=== PATIENT | female | born 1940 | race Caucasian/White ===

== ENCOUNTER 2019-02-25 17:51 | Inpatient (IN) | payer MEDICARE, BC ==
[~2019-02-25] VITALS: Ht 162.6 cm; Wt 77.2 kg
[~2019-02-25 17:51] MED LIST: BENADRYL INJ50 MG/ML IV; BENADRYL25 M1 PO; BENADRYL25 MG IV; CARAFATE1 G PEG; CELEXA20 MG PO; DULCOLAX10 MG/SUPP RC; DUONEB 2.5-0.5 M3 ML INH; E.E.S. 200200 MG/5 M PO; FLEXERIL10 MG PO; GAS-X125 M1 PO; INTRALIPID 20%250 ML IV; K-DUR20 MEQ PO; LEVAQUIN500 MG IV; LEVOFLOXAC500 MG/100 IV; LORTAB LIQUID15 ML PO; LOVENOX30 MG/0.3 SQ; LOVENOX40 MG/0.4 SQ; MAG-OX 400 MG400 MG PO; MARINOL2.5 MG PO; MEGACE400 MG/10 PO; MIDAMOR5 MG PO; MIRALAX17 GM PO; ONDANSETRON4 MG/2 M3 IV; PATIENT'S OWN MED; PERIACTIN4 MG PO; PHAZYME180 MG PO; PHOS-NAK PAC1 PACKET PO; PROTONIX40 MG PO; SALINE FLUSH10 ML IV; SENOKOT-S TABLE1 TAB PO; SENSIPAR30 MG PO; SODIUM CL 0.91000 ML IV; SYNTHROID75 MCG PO; TPN IV; VANCOMYCIN1 GM/2501 IV; XENAZINE12.5 MG PO; ZOFRAN ODT4 MG/UDTAB PO; ZOFRAN4 MG PO; [UNRECOGNIZED DRUG - OTHER] IV
[2019-02-25] MEDS ORDERED: LEVOFLOXACIN500 MG PO (18:03)
[2019-02-25] MEDS ORDERED: REGLAN10 MG PO (18:03)
[2019-02-25 18:44] LABS: BASOPHILS 0.1 % (0-2); EOSINOPHILS 0.8 % (0-7); HEMATOCRIT 28.4 % (36.0-48.0); HEMOGLOBIN 9.4 g/dL (12-16); IMMATURE GRANULOCYTES 1.4 % (0-5); LYMPHOCYTES 20.5 % (15-50); MCH 29.8 pg (26.0-34.0); MCHC 33.1 g/dL (31.0-37.0); MCV 90.2 fL (80.0-100.0); MEAN PLATELET VOLUME 11.9 fL (7.4-10.4); MONOCYTES 5.5 % (2-11); NEUTROPHILS 71.7 % (40-80); PLATELET COUNT 191 10x3/uL (130-400); RBC 3.15 10x6/uL (4.00-5.40); RDW 12.8 % (11.5-14.5); WBC 14.1 10x3/uL (4.8-10.8)
--- NOTE | 2019-02-25 18:56 | NUR ---
EMS IV WITH SIGNS OF INFILTRATION, IV DC"D CATH INTACT, OK PER DR. TORRES TO RESITE IV IN FOOT. 20G IV WITH BLOOD DRAW TO DORSAL SIDE OF RIGHT FOOT.
[2019-02-25 19:25] LABS: LIPASE 125 U/L (73-393); MAGNESIUM - SERUM 1.3 mg/dL (1.8-2.4); PRO BNP 407 pg/mL (0-450); THYROID STIMULATING HORMONE 0.98 uIU/mL (0.36-3.74)
[2019-02-25 19:26] LABS: TROPONIN-I < 0.017 ng/mL (0.000-0.060)
[2019-02-25 19:30] VITALS: BP 109/67
[2019-02-25 19:53] LABS: ALBUMIN 2.5 g/dL (3.4-5.0); BILIRUBIN - TOTAL 0.27 mg/dL (0.2-1.3); CALCIUM 8.1 mg/dL (8.5-10.1); CARBON DIOXIDE 18.5 mmol/L (21.0-32.0); CREATININE - SERUM 2.3 mg/dL (0.6-1.3); POTASSIUM - SERUM 4.5 mmol/L (3.5-5.1); PROTEIN - SERUM 6.9 g/dL (6.4-8.2)
--- NOTE | 2019-02-25 19:54 | NUR ---
PT ASSISTED ONTO BED VANG. URINE SPECIMEN SENT TO LAB.
[2019-02-25 20:15] LABS: APPEARANCE HAZY (CLEAR); BILIRUBIN 3+ (NEGATIVE); COLOR DK YELLOW (YELLOW); GLUCOSE NEGATIVE (NEGATIVE); KETONE SMALL mg/dL (NEGATIVE); NITRITE POSITIVE (NEGATIVE); PROTEIN NEGATIVE (NEGATIVE); SPECIFIC GRAVITY 1.015 (1.005-1.020)
[2019-02-25 20:17] LABS: BACTERIA MODERATE /hpf (NONE SEEN); EPITHELIAL CELLS 0-5 /hpf (0-5); RED CELLS - URINE 0-5 /hpf (0-5)
[2019-02-25 20:19] LABS: YEAST <1+ /hpf (NONE SEEN)
[2019-02-25 22:21] VITALS: BP 112/65; BMI 27.4
--- NOTE | 2019-02-25 22:47 | NUR ---
PT ARRIVED VIA STRETCHER FROM ER AT 2121 HRS. VSS. PT DENIED ANY DISCOMFORT. ADMISSION ASSESSMENT, HISTORY COMPLETED AT THIS TIME. SR PER CM HR 95. IV TO R FOOT SL. PT ALERT AND ORIENTED TO PERSON, PLACE AND TIME. VAL[place]. LYTTON. LUNGS DIMINISHED IN BASES BILAT. LARGE ABD HERNIA NOTED. HEALING INCISION NOTED TO R HIP WITH SMALL SCAB. L ARM WITH LARGE BRUISE. BUTTOCKS SLIGHTLY RED. PALPABLE PERIPHERAL PULSES. PT UNSURE OF MEDS. STATES DAUGHTER WILL BE BACK SOON. PT ALSO STATES SHE IS UNABLE TO BEAR WEIGTH AND IS WC BOUND. S RUP X2, CALL LIGHT WITHIN REACH.
[2019-02-25 23:55] VITALS: BP 112/65
--- NOTE | 2019-02-26 00:53 | NUR ---
PT AWAKE, DENIES ANY DISCOMFORT. DAUGHTER HERE. HOME MEDS REVIEWED.
--- NOTE | 2019-02-26 02:24 | NUR ---
PT INCONTINENT OF URINE. INCONTINENT CARE DONE.
[2019-02-26 03:25] VITALS: BP 102/63
--- NOTE | 2019-02-26 05:09 | NUR ---
PT RESTING WITH EYES CLOSED. RESP EVEN AND REGULAR. SR UP X2, CALL LIGHT WITHIN REACH.
--- NOTE | 2019-02-26 05:58 | NUR ---
VSS THROUGHOUT NIGHT. SR PER CM. PT STATED SHE FELT BETTER. NEEDS MET, WILL CONTINUE TO MONITOR. DAUGHTER AT BEDSIDE.
[2019-02-26 09:00] VITALS: BP 105/63
--- NOTE | 2019-02-26 09:31 | NUR ---
CALLED GI AND SPOKE WITH ELDER, ASKED HIM IF PT IS ON SCHEDULE FOR UPPER GI TODAY WITH DR. DIAZ. ELDER WILL CALL ME BACK.
--- NOTE | 2019-02-26 11:36 | NUR ---
PT TO RADIOLOGY AT THIS TIME.
[2019-02-26 12:34] VITALS: BMI 27.6
--- NOTE | 2019-02-26 12:38 | NUR ---
CLEANED PT FROM INCONT EPISODE, REPOSTIONED PT IN BED, FAMILY AT BEDSIDE. CALL LIGHT IN REACH, NAD NOTED, WILL CONTINUE TO MONITOR.
--- NOTE | 2019-02-26 13:45 | NUR ---
OT NOTE: ATTEMPTED OT EVAL..HOLD PER FAMILY REQUEST. BERTRAM CORBETT, OTR/L
--- NOTE | 2019-02-26 14:05 | NUR ---
1/2 NS AT 75CC/HR STARTED TO RT FOOT IV. PT RESTING COMFORTABLY IN BED, DENIES ANHY NEEDS AT THIS TIME. CALL LIGHT IN REACH, NAD NOTED, WILL CONTINUE TO MONITOR.
--- NOTE | 2019-02-26 14:43 | NUR ---
CLEANED PT FROM INCONT EPISODE AND REPOSITIONED PT BACK ON HER LT SIDE.
--- NOTE | 2019-02-26 19:45 | NUR ---
PT LYING IN BED. CALL LIGHT IN REACH. PT DENIES NEEDS OR PAIN AT THIS TIME. BED IN LOW .SIDE RAILS X2. IV INTACT IN RIGHT FOOT. LUNGS DIMINISHED. BOWEL ACTIVE X4. A/O X4. INCONT OF URINE. TELEMETRY ON. WILL CONTINUE TO MONITOR.
[2019-02-26 20:00] VITALS: BP 111/67
[2019-02-27] VITALS: BP 100/54
--- NOTE | 2019-02-27 03:11 | NUR ---
PT PULLED RIGHT FOOT IV OUT DUE TO BEING LOW IN BED. NEW IV STARTED 20GUAGE IN SAME RIGHT FOOT. NO COMPLICATIONS. WCTM IV STARTED BACK.
[2019-02-27 04:00] VITALS: BP 97/46
--- NOTE | 2019-02-27 04:22 | NUR ---
I have reviewed this patient and I concur with the Shift Assessment completed by the Licensed Practical Nurse today this shift.
[2019-02-27 06:25] LABS: BASOPHILS 0.1 % (0-2); EOSINOPHILS 1.6 % (0-7); HEMATOCRIT 24.3 % (36.0-48.0); HEMOGLOBIN 7.8 g/dL (12-16); IMMATURE GRANULOCYTES 1.3 % (0-5); LYMPHOCYTES 20.8 % (15-50); MCH 29.1 pg (26.0-34.0); MCHC 32.1 g/dL (31.0-37.0); MCV 90.7 fL (80.0-100.0); MONOCYTES 6.6 % (2-11); NEUTROPHILS 69.6 % (40-80); RBC 2.68 10x6/uL (4.00-5.40)
[2019-02-27 06:27] LABS: PLATELET COUNT 136 10x3/uL (130-400); WBC 6.8 10x3/uL (4.8-10.8)
[2019-02-27 06:58] LABS: INR 1.08 (0.85-1.17); PROTIME 13.5 SECONDS (11.6-15.0)
[2019-02-27 07:28] LABS: ALBUMIN 2.9 g/dL (3.4-5.0); ANION GAP 17.2 mmol/L (8-16); BILIRUBIN - TOTAL 0.47 mg/dL (0.2-1.3); CARBON DIOXIDE 17.8 mmol/L (21.0-32.0); MAGNESIUM - SERUM 1.2 mg/dL (1.8-2.4); PRE-ALBUMIN 16.5 mg/dL (18.0-35.7); PROTEIN - SERUM 5.6 g/dL (6.4-8.2)
[2019-02-27 07:47] VITALS: BP 111/60
[2019-02-27 07:54] LABS: CALCIUM 10.6 mg/dL (8.5-10.1); CREATININE - SERUM 2.9 mg/dL (0.6-1.3)
--- NOTE | 2019-02-27 07:56 | NUR ---
LAB CALLED WITH GLUCOSE OF 52. BED SIDE NURSETj FINLEY NOTIFIED.
--- NOTE | 2019-02-27 08:40 | NUR ---
OT NOTE: UNABLE TO EVALUATE THIS AM, BLOOD SUGAR WAS VERY LOW. BERTRAM CORBETT, OTR/L
[2019-02-27 10:14] LABS: FOLATE (FOLIC ACID) - SERUM 12.5 ng/mL (>3.0)
[2019-02-27 12:18] VITALS: BP 109/31
--- NOTE | 2019-02-27 14:20 | NUR ---
I have reviewed this patient and I concur with the Shift Assessment completed by the Licensed Practical Nurse today this shift.
--- NOTE | 2019-02-27 18:44 | NUR ---
PT IS TO BE GETTING ONE UNIT BLOOD. LAB HAS BEEN UNABLE TO STICK PT SUCCESSFULLY FOR TYPE AND XMATCH. WILL ATTEMPT NOW TO DRAW BLOOD AGAIN
[2019-02-27 19:25] VITALS: BP 109/31
[2019-02-27 20:00] VITALS: BP 93/59
--- NOTE | 2019-02-27 22:15 | NUR ---
PT REFUSED IN AND OUT CATH. BLADDER SCAN FOR PT, 0 ML IS RETAINING.
[2019-02-28] VITALS: BP 112/57
--- NOTE | 2019-02-28 00:01 | NUR ---
1 UNITS OF BLOOD STARTED BY VAN AVILES.
--- NOTE | 2019-02-28 02:59 | NUR ---
REST QUIETLY IN BED, CALL LIGHT IN REACH.
[2019-02-28 04:00] VITALS: BP 166/61
[2019-02-28 06:52] LABS: BASOPHILS 0.1 % (0-2); EOSINOPHILS 1.5 % (0-7); IMMATURE GRANULOCYTES 1.9 % (0-5); LYMPHOCYTES 22.8 % (15-50); MCH 29.7 pg (26.0-34.0); MCHC 32.7 g/dL (31.0-37.0); MCV 90.7 fL (80.0-100.0); MEAN PLATELET VOLUME 12.4 fL (7.4-10.4); NEUTROPHILS 64.7 % (40-80); PLATELET COUNT 119 10x3/uL (130-400); RDW 13.4 % (11.5-14.5); WBC 6.8 10x3/uL (4.8-10.8)
[2019-02-28 06:54] LABS: HEMOGLOBIN 10.8 g/dL (12-16); RBC 3.64 10x6/uL (4.00-5.40)
--- NOTE | 2019-02-28 07:30 | NUR ---
A/A/OX4. DENIES ANY PAIN OR DISCOMFORT WITH NO REQUESTS AT THIS TIME. ASSESSMENT COMPLETED. WILL CONTINUE POC.
[2019-02-28 09:21] VITALS: BP 128/60
--- NOTE | 2019-02-28 10:32 | NUR ---
TALKED WITH DAUGHTER CONCERNING ORDER FOR I/O CATH. SHE STATES PT HAS UTI ALMOST ALL OF THE TIME AND HAS BEEN ON SO MANY ABX FOR IT. SHE REQUESTS THAT THE CATH NOT BE DONE AND PT ALSO HAS REFUSED HAVING IT DONE.
[2019-02-28 10:51] LABS: ALBUMIN 3.1 g/dL (3.4-5.0); ANION GAP 14.9 mmol/L (8-16); BILIRUBIN - TOTAL 0.82 mg/dL (0.2-1.3); CALCIUM 11.2 mg/dL (8.5-10.1); CARBON DIOXIDE 17.8 mmol/L (21.0-32.0); CREATININE - SERUM 2.7 mg/dL (0.6-1.3); MAGNESIUM - SERUM 1.2 mg/dL (1.8-2.4); POTASSIUM - SERUM 3.7 mmol/L (3.5-5.1); PROTEIN - SERUM 5.8 g/dL (6.4-8.2)
[2019-02-28 12:07] VITALS: BP 121/61
--- NOTE | 2019-02-28 12:23 | NUR ---
I have reviewed this patient and I concur with the Shift Assessment completed by the Licensed Practical Nurse today this shift.
--- NOTE | 2019-02-28 13:48 | NUR ---
TO RADIOLOGY FOR BARIUM SWALLOW,
--- NOTE | 2019-02-28 14:08 | NUR ---
RETURNED TO ROOM.
[2019-02-28 15:57] VITALS: BP 101/55
--- NOTE | 2019-02-28 18:26 | NUR ---
IV IN LEFT FOREARM INFUSED. NURSE FROM ER WAS ABLE TO GET 22G IN RIGHT THUMB X 1 ATTEMPT. INFUSING WELL AT THIS TIME.
--- NOTE | 2019-02-28 19:01 | NUR ---
OT NOTE: PT COMPLETED POSITIONING AND BED MOB TASK WITH TOTAL A. 09/1216 THANK YOU, ENRIQUETA SALAMANCA
--- NOTE | 2019-02-28 19:35 | NUR ---
RESUMING PT CARE. PT IS ALERT LAYING IN BED. FAMILY AT BEDSIDE. NO C/O VOICED. NO S/S OF DISTRESS NOTED. BED IN LOW POSITION WITH CALL LIGHT IN REACH. SIDE RAILS UP X 2. WILL CONTINUE TO MONITOR PT AND FOLLOW PLAN OF CARE.
[2019-02-28 20:00] VITALS: BP 123/58
[2019-03-01 04:00] VITALS: BP 125/72; BP 177/78
[2019-03-01 05:59] LABS: BASOPHILS 0.1 % (0-2); EOSINOPHILS 1.8 % (0-7); HEMATOCRIT 29.7 % (36.0-48.0); HEMOGLOBIN 9.9 g/dL (12-16); LYMPHOCYTES 21.6 % (15-50); MCH 29.6 pg (26.0-34.0); MCHC 33.3 g/dL (31.0-37.0); MEAN PLATELET VOLUME 11.1 fL (7.4-10.4); MONOCYTES 7.4 % (2-11); NEUTROPHILS 68.1 % (40-80); PLATELET COUNT 113 10x3/uL (130-400); RBC 3.35 10x6/uL (4.00-5.40); RDW 13.5 % (11.5-14.5); WBC 6.8 10x3/uL (4.8-10.8)
[2019-03-01 06:03] LABS: MCV 88.7 fL (80.0-100.0)
[2019-03-01 06:19] LABS: ALBUMIN 2.6 g/dL (3.4-5.0); ANION GAP 10.9 mmol/L (8-16); BILIRUBIN - TOTAL 0.55 mg/dL (0.2-1.3); CALCIUM 11.2 mg/dL (8.5-10.1); CARBON DIOXIDE 19.9 mmol/L (21.0-32.0); CREATININE - SERUM 2.3 mg/dL (0.6-1.3); MAGNESIUM - SERUM 1.1 mg/dL (1.8-2.4); POTASSIUM - SERUM 3.8 mmol/L (3.5-5.1); PROTEIN - SERUM 5.5 g/dL (6.4-8.2)
--- NOTE | 2019-03-01 07:16 | NUR ---
AM ROUNDING DONE WITH PATIENT HAVING NO COMPLAINTS AT PRESENT TIME, ON ROOM AIR. ON HEART MONITOR SHOWING SR, HR 69. RIGHT THUMB PIV SEEN WITH LS INFUSING AT 75 CC/HR. ON EP, K+ IS 3.8. LARGE BRUISED AREA SEEN TO LEFT FA AND TO LEFT HAND. NEEDING UA, IN REPORT PATIENT IS INCONTIENT. BILATERAL SCD'S ON AND IN USE.
[2019-03-01 08:15] VITALS: BP 148/68
--- NOTE | 2019-03-01 10:39 | NUR ---
BALDEMARAY CALLED AND STATED IT WAS GOING TO BE A LITTLE WHILE BEFORE THEY WERE ABLE TO DO HER TEST AND COULD I LET HER KNOW THIS. I SPOKE WITH HER AND SHE VERBALIZED UNDERSTANDING.
--- NOTE | 2019-03-01 11:21 | NUR ---
CATH URINE TO LAB ORDERED.
--- NOTE | 2019-03-01 12:09 | NUR ---
Nutrition follow-up: Diet: Full liquids PO intake ~10% average of meals Labs reivewed Wt: 171# Pt reports a 30# weight loss since October; physician reports same. Pt now assessed with severe malnutrition of chronic illness R/T severe reflux s/p Praveena Fundiplacation AEB ~15% weight loss in 4 months (2018 - 214# and now 171#); < 75% intake of estimated energy needs for > 1 month. RDN will order Ensure wtih meals to increase kcal, protein intake. RDN following.
--- NOTE | 2019-03-01 12:11 | NUR ---
STILL NPO AWAITING RADIOLOGY.
--- NOTE | 2019-03-01 13:01 | NUR ---
TO RADIOLOGY VIA BED.
[2019-03-01 13:09] VITALS: BP 126/44
--- NOTE | 2019-03-01 13:41 | NUR ---
RETURNS FROM RADIOLOGY.
--- NOTE | 2019-03-01 13:52 | NUR ---
WHILE WORKING WITH THERAPY, PATIENT IS CLEANED FROM INCONT. OF URINE AND STOOL.
--- NOTE | 2019-03-01 14:46 | NUR ---
OT NOTE: PT PERFORMED BED MOB WITH MIN ASSIST TOWARDS R SIDE BUT MOD ASSIST TOWARDS L SIDE; SIMPLE GROOMING WITH MIN ASSIST FOR WASHING FACE AND HANDS WITH CLOTH; TOTAL ASSIST WITH PERINEAL CARE, PT WAS INCONT OF B AND B. REPOSITIONED AND CHANGED LINENS. REPOSITIONED UP IN BED WITH MAX ASSIST X 2. BERTRAM CORBETT, OTR/L
[2019-03-01 15:18] VITALS: BP 117/62
--- NOTE | 2019-03-01 16:07 | NUR ---
OT NOTE: PT COMPLETED BED MOB AND POSITIONING WITH MAX A. 215/225 THANK YOU, ENRIQUETA SALAMANCA
--- NOTE | 2019-03-01 19:13 | NUR ---
RESUMING PT CARE. PT IS ALERT LAYING IN BED. FAMILY AT BEDSIDE. NO C/O VOICED. NO S/S OF DISTRESS NOTED. RESPIRATIONS ARE EVEN AND UNLABORED. BED IN LOW POSITION WITH CALL LIGHT IN REACH. WILL CONTINUE TO MONITOR PT AND FOLLOW PLAN OF CARE.
[2019-03-01 20:05] VITALS: BP 120/58
[2019-03-02] VITALS: BP 124/60
--- NOTE | 2019-03-02 03:18 | NUR ---
I have reviewed this patient and I concur with the Shift Assessment completed by the Licensed Practical Nurse today this shift.
[2019-03-02 04:00] VITALS: BP 170/78
[2019-03-02 05:21] LABS: ALBUMIN 2.6 g/dL (3.4-5.0); ANION GAP 13.8 mmol/L (8-16); BILIRUBIN - TOTAL 0.64 mg/dL (0.2-1.3); CALCIUM 11.4 mg/dL (8.5-10.1); CARBON DIOXIDE 18.1 mmol/L (21.0-32.0); CREATININE - SERUM 2.1 mg/dL (0.6-1.3); MAGNESIUM - SERUM 1.2 mg/dL (1.8-2.4); POTASSIUM - SERUM 3.9 mmol/L (3.5-5.1); PROTEIN - SERUM 5.5 g/dL (6.4-8.2)
[2019-03-02 05:24] LABS: HEMATOCRIT 29.9 % (36.0-48.0); MCH 29.9 pg (26.0-34.0); MCHC 33.4 g/dL (31.0-37.0); MCV 89.3 fL (80.0-100.0); MEAN PLATELET VOLUME 12.6 fL (7.4-10.4); PLATELET COUNT 120 10x3/uL (130-400); RBC 3.35 10x6/uL (4.00-5.40); RDW 13.6 % (11.5-14.5); WBC 6.9 10x3/uL (4.8-10.8)
--- NOTE | 2019-03-02 06:18 | NUR ---
PT VOMITED THIS MORNING. COLOR OF VOMIT WAS YELLOW. ZOFRAN 4MG IV GIVEN. WILL CONTINUE TO MONITOR PT AND FOLLOW PLAN OF CARE.
--- NOTE | 2019-03-02 06:22 | NUR ---
PT GLUCOSE WAS 61 PER AM LABS. INSTA-GLU GEL WAS GIVEN. PER NURSE PRACTIONER KALPANA BURKS. PT ONLY HAD A SMALL AMOUNT. PT DID NOT TOLERATE WELL. WILL CONTINUE TO MONITOR PT AND FOLLOW PLAN OF CARE.
--- NOTE | 2019-03-02 07:14 | NUR ---
AM ROUNDING DONE WITH PATIENT HAVING NO COMPLAINTS. WAS SICK LAST SHIFT. RIGHT THUMB SEEN PIV WITH LR INFUSING AT 75 CC/HR. TOTAL CARE PATIENT. IN INCONT. ON HEART MONITOR. UNABLE TO MOVE LEFT LEG. OBESE ABDOMEN. ON EP, K+ IS 3.9. BRUISING SEEN TO LEFT AHD RIGHT ARM AND LEFT HAND. BILATERAL SCD'S ARE ON AND IN USE.
[2019-03-02 07:56] VITALS: BP 137/54
--- NOTE | 2019-03-02 08:05 | NUR ---
PATIENT TO REFUSE HER BREAKFAST TRAY THIS AM.
[2019-03-02 09:03] LABS: EOSINOPHILS 1 % (0-7); HYPOCHROMASIA 1+; LYMPHOCYTES 30 % (15-50); MONOCYTES 8 % (2-11); NEUTROPHILS 60 % (40-80); PLATELET ESTIMATE NORMAL; ROULEAUX OCC
--- NOTE | 2019-03-02 11:10 | NUR ---
NOON MEDS NOT GIVEN PATIENT IS HAVING SOME YELLOW EMESIS. ZOFRAN GIVEN.
[2019-03-02 12:20] VITALS: BP 125/70
--- NOTE | 2019-03-02 13:06 | MORECARE ---
CASE MANAGEMENT DISCHARGE SUMMARY PATIENT: SAMANTA HUERTA UNIT: [id number] ADM DATE: 02/25/19 AGE: 78 : 41 SEX: F ROOM/BED: D.2109 AUTHOR: LORENE REAVES PHYSICIAN: REFERRING PHYSICIAN: KARISSA PETERSON MD DATE OF SERVICE: 03/02/19 Discharge Plan Patient Name: SAMANTA HUERTA Facility: [facility]:[place] : 1940 Planned Disposition: Home with Home Health Anticipated Discharge Date: Discharge Date: Expected LOS: Initial Reviewer: [email or web address] Initial Review Date: 03/02/2019 Generated: 03/02/19 2:05 pm Coverage Notice Reviewer: [id number] - Leonid Sandy Notice Issued Date-Time: 03/02/2019 9:40 Notice Type: Patient Choice Letter Notice Delivered To: Patient Relationship to Patient: Clay Molder Name: Delivery Method: HAND - Hand Delivered Radha Days: Prior Verbal Notification: Recipient Understood Notice: Yes Recipient Signature: Yes Med Rec Note Co-signed by Attending: Coverage Notice Comment: [facility] Patient Name: SAMANTA HUERTA Page 44921 at 1306 All edits/amendments must be made on the electronic document DICTATION DATE: 03/02/19 1305 BLACK ASH BURNER OPERATOR: DEISY 03/02/19 1305 RPT#: [id number] DC DATE: STATUS: ADM IN [facility] [address] [place] [address] END OF REPORT
--- NOTE | 2019-03-02 13:27 | MORECARE ---
CASE MANAGEMENT DISCHARGE SUMMARY PATIENT: SAMANTA HUERTA UNIT: [id number] ADM DATE: 02/25/19 AGE: 78 : 41 SEX: F ROOM/BED: D.2108 AUTHOR: LORENE REAVES PHYSICIAN: REFERRING PHYSICIAN: KARISSA PETERSON MD DATE OF SERVICE: 03/02/19 Discharge Plan Patient Name: SAMANTA HUERTA Facility: [facility]:[place] : 1940 Planned Disposition: Home with Home Health Anticipated Discharge Date: Discharge Date: Expected LOS: Initial Reviewer: [email or web address] Initial Review Date: 03/02/2019 Generated: 03/02/19 2:27 pm Coverage Notice Reviewer: [id number] - Leonid Sandy Notice Issued Date-Time: 03/02/2019 9:40 Notice Type: Patient Choice Letter Notice Delivered To: Patient Relationship to Patient: Dominatrix Name: Delivery Method: HAND - Hand Delivered Radha Days: Prior Verbal Notification: Recipient Understood Notice: Yes Recipient Signature: Yes Med Rec Note Co-signed by Attending: Coverage Notice Comment: [facility] Last DP export: 03/02/19 12:05 pm Patient Name: SAMANTA HUERTA Page 80196 at 1327 All edits/amendments must be made on the electronic document DICTATION DATE: 03/02/19 1326 GOLF MANAGER: DEISY 03/02/19 1326 RPT#: [id number] [place] DATE: STATUS: ADM IN [facility] [address] [place] [address] END OF REPORT
--- NOTE | 2019-03-02 13:33 | MORECARE ---
CASE MANAGEMENT DISCHARGE SUMMARY PATIENT: SAMANTA HUERTA UNIT: [id number] ADM DATE: 02/25/19 AGE: 78 : 41 SEX: F ROOM/BED: D.2108 AUTHOR: JELLY,DOC PHYSICIAN: REFERRING PHYSICIAN: KARISSA PETERSON MD DATE OF SERVICE: 03/02/19 Discharge Plan Patient Name: SAMANTA HUERTA Facility: [facility]:[place] : 1940 Planned Disposition: Home with Home Health Anticipated Discharge Date: Discharge Date: Expected LOS: Initial Reviewer: [email or web address] Initial Review Date: 03/02/2019 Generated: 03/02/19 2:33 pm DCPIA - Discharge Planning Initial Assessment Updated by MARIELENA: Leonid Sandy on 03/02/19 1:28 pm * Is the patient Alert and Oriented? Yes * How many steps to enter\exit or inside your home? RAMP * PCP DR. MENDOZA IN [place] * Pharmacy [facility] IN [place] * Preadmission Environment Home with Family * ADLs Partial Dependent * Partial ADLs (Assistance needed) Ambulation Bathing Dressing Medication Management Toileting Transfers * Equipment Hospital Bed Arcadio Lift Wheelchair * Other Equipment NO MEDICAL EQUIPMENT PROVIDER PREFERENCE * List name and contact numbers for known caregivers / representatives who currently or will assist patient after discharge: MARYBESSY OLGUIN, R, * Verbal permission to speak to the caregivers and representatives has been obtained from the patient. Yes * Community resources currently utilized Home Health * Please name any agencies selected above. [facility]ER[facility] * Additional services required to return to the preadmission environment? No * Can the patient safely return to the preadmission environment? Yes * Has this patient been hospitalized within the prior 30 days at any hospital? Yes Coverage Notice Reviewer: [id number] - Leonid Sandy Notice Issued Date-Time: 03/02/2019 9:40 Notice Type: Patient Choice Letter Notice Delivered To: Patient Relationship to Patient: Biology Specialist Name: Delivery Method: HAND - Hand Delivered Radha Days: Prior Verbal Notification: Recipient Understood Notice: Yes Recipient Signature: Yes Med Rec Note Co-signed by Attending: Coverage Notice Comment: [facility] Last DP export: 03/02/19 12:27 pm Patient Name: SAMANTA HUERTA Page [id number] at 1333 All edits/amendments must be made on the electronic document DICTATION DATE: 03/02/191332 TOOL AND DIE MAKER LEVEL FIVE: DEISY 03/02/191332 RPT#: [id number] DC DATE: STATUS: ADM IN [facility] [address] [place] [address] END OF REPORT
--- NOTE | 2019-03-02 13:41 | MORECARE ---
CASE MANAGEMENT DISCHARGE SUMMARY PATIENT: SAMANTA HUERTA UNIT: [id number] ADM DATE: 02/25/19 AGE: 78 : 41 SEX: F ROOM/BED: D.9271 AUTHOR: JELLY,DOC PHYSICIAN: REFERRING PHYSICIAN: KARISSA PETERSON MD DATE OF SERVICE: 03/02/19 Discharge Plan Patient Name: SAMANTA HUERTA Facility: [facility]:[place] : 1940 Planned Disposition: Home with Home Health Anticipated Discharge Date: Discharge Date: Expected LOS: Initial Reviewer: [email or web address] Initial Review Date: 03/02/2019 Generated: 03/02/19 2:41 pm Comments DCP- Discharge Planning Updated by [email or web address]: Leonid Sandy on 03/02/19 12:[address] Patient Name: SAMANTA HUERTA Admission Status: ER Accout number: [id number] Admission Date: 02-25-2019 : 1940 Admission Diagnosis:NAUSEA WITH VOMITING, UNSPECIFIED Attending: KARISSA PETERSON Current LOS: 5 Anticipated DC Date: Planned Disposition: Home with Home Health Primary Insurance: MEDICARE A & B PLANNED EXTERNAL PROVIDER: [facility] Discharge Planning Comments: CM MET WITH PT IN ROOM TO DISCUSS DISCHARGE PLANNING AND NEEDS. PT REPORTS LIVING AT HOME DEPENDENTLY ON [place], SPOUSE AND DAUGHTER WHO LIVES NEXT DOOR WHO ASSISTS WITH MEDICATIONS, BATH AND TRANSFERS. PT HAS ARCADIO LIFT, WHEELCHAIR AND HOSPITAL BED AT HOME. PT HAS NO MEDICAL EQUIPMENT PROVIDER PREFERENCE. PT HAS HOME HEALTH FOR NURSING AND PHYSICAL THERAPY WITH [facility]. CM DISCUSSED AVAILABILITY OF HOME HEALTH, REHAB SERVICES AND MEDICAL EQUIPMENT. PT DENIES NEED OF REHAB OR ADDITIONAL MEDICAL EQUIPMENT. PT REPORTS NEEDING AMBULANCE FOR DISCHARGE HOME. HOME HEALTH PROVIDER LISTING GIVEN, PT SIGNED CONSENT FOR [facility]. CM CALLED [facility], , VERIFIED PT IS ACTIVE AND ON HOLD FOR HOME HEALTH SERVICES. CM FAXED UPDATE TO [facility] AT [phone]. FOR DISCHARGE HOME AND RESUPTION OF HOME HEALTH SERVICES, NOTIFY [facility] AT [phone], FAX DISCHARGE INFORMATION TO [facility] AT [phone]. Machine Tool Builder: Leonid Sandy DCPIA - Discharge Planning Initial Assessment Updated by [id number]: Leonid Sandy on 03/02/19 1:28 pm * Is the patient Alert and Oriented? Yes * How many steps to enter\exit or inside your home? RAMP * PCP DR. MENDOZA IN [place] * Pharmacy [facility] IN [place] * Preadmission Environment Home with Family * ADLs Partial Dependent * Partial ADLs (Assistance needed) Ambulation Bathing Dressing Medication Management Toileting Transfers * Equipment Hospital Bed Arcadio Lift Wheelchair * Other Equipment NO MEDICAL EQUIPMENT PROVIDER PREFERENCE * List name and contact numbers for known caregivers / representatives who currently or will assist patient after discharge: MARY OLGUIN, DTR, * Verbal permission to speak to the caregivers and representatives has been obtained from the patient. Yes * Community resources currently utilized Home Health * Please name any agencies selected above. [facility] * Additional services required to return to the preadmission environment? No * Can the patient safely return to the preadmission environment? Yes * Has this patient been hospitalized within the prior 30 days at any hospital? Yes External Providers External Provider: [facility] Next Contact Date: 03/02/2019 Service Request Date: Service Type: Resolution: Reviewer: Comments: Coverage Notice Reviewer: [id number] - Leonid Sandy Notice Issued Date-Time: 03/02/2019 9:40 Notice Type: Patient Choice Letter Notice Delivered To: Patient Relationship to Patient: Framing Mechanic Name: Delivery Method: HAND - Hand Delivered Radha Days: Prior Verbal Notification: Recipient Understood Notice: Yes Recipient Signature: Yes Med Rec Note Co-signed by Attending: Coverage Notice Comment: [facility] Last DP export: 03/02/19 12:33 pm Patient Name: SAMANTA HUERTA Page 50901 at 1341 All edits/amendments must be made on the electronic document DICTATION DATE: 03/02/19 1340 NEWS PRODUCTION ASSISTANT: DEISY 03/02/19 1340 RPT#: [id number] DC DATE: STATUS: ADM IN [facility] [address] [place] [address] END OF REPORT
--- NOTE | 2019-03-02 14:58 | NUR ---
COMPLAINTS OF NAUSEA AGAIN, NO EMESIS AT THIS TIME. ZOFRAN GIVEN FOR COMFORT OF STOMACH.
[2019-03-02 15:56] VITALS: BP 166/74
--- NOTE | 2019-03-02 16:43 | NUR ---
DARCI KELLEY RN TO GIVE PATIENT MEDS AND PATIENT VOMITS GREEN BILE, APPROX 4 OZ. CALL INTO KALPANA MICHELLE APN. AWAITING CALL BACK. DAUGHTER AT BEDSIDE.
--- NOTE | 2019-03-02 16:47 | NUR ---
RECEIVED CALL BACK FROM KALPANA MICHELLE APN. TO CALL GI. SAWANT INTO DR GALVAN, AWAITING CALL BACK.
--- NOTE | 2019-03-02 17:00 | NUR ---
DR GALVAN TO CALL BACK WITH NEW ORDERS. PATIENT IS MADE NPO.
--- NOTE | 2019-03-02 17:48 | NUR ---
PT SITTING UP IN BED. RESP EVEN AND NONLABORED. NO ACUTE DISTRESS NOTED. PT DAUGHTER REQUESTED ANOTHER IV FOR THE REGLAN TO BE GIVEN THROUGH. DIOGO ATTEMPTED TO PLACE IV WITH NO SUCCESS. PT STILL HAS PATENT IV IN R THUMB. IV IN USE FOR LR IV FLUID. MEDICATION GIVEN AT THIS TIME. CL IN REACH. PT HAS NOT VOMITED SINCE EPISODE EARLIER THIS SHIFT. WILL CONT TO MONITOR.
[2019-03-02 20:00] VITALS: BP 153/87
[2019-03-03] VITALS: BP 130/86
[2019-03-03 03:00] VITALS: BP 148/79
--- NOTE | 2019-03-03 03:35 | NUR ---
I have reviewed this patient and I concur with the Shift Assessment completed by the Licensed Practical Nurse today this shift.
--- NOTE | 2019-03-03 04:38 | NUR ---
PT LAYING IN BED RESTING COMFORTABLY WITH EYES CLOSED. NO S/S OF DISTRESS NOTED. RESPIRATIONS ARE EVEN AND UNLABORED. BED IN LOW POSITION WITH CALL LIGHT IN REACH. WILL CONTINUE TO MONITOR PT AND FOLLOW PLAN OF CARE.
--- NOTE | 2019-03-03 07:00 | NUR ---
RECEVIED BEDSIDE SHIFT REPORT. ASSUMED CARE OF PATIENT. CALL LIGHT WITHIN REACH. PATIENT RESTING WITH EYES CLOSED. RESP EVEN AND UNLABORED. NO DISTRESS.
[2019-03-03 08:44] VITALS: BP 136/70
--- NOTE | 2019-03-03 08:53 | NUR ---
PATIENT IS NPO WITH NAUSEA THROUGHOUT THE NIGHT. NO MEDICATIONS ADMINISTERED.
--- NOTE | 2019-03-03 09:12 | NUR ---
MEDICATED FOR NAUSEA AT THIS TIME. CALL LIGHT WITHIN REACH. PATIENT ASKING FOR WATER BUT VOMITING. EXPLAINED THAT SHE IS NPO. PATIENT VERBALIZED HER UNDERSTANDING.
--- NOTE | 2019-03-03 10:53 | NUR ---
PATIENTS DAUGHTER MARY CALLED TO CHECK ON PATIENT AND REQUESTING TO SPEAK TO WHEN SHE IS AVAILABLE. WILL FORWARD THIS MESSAGE TO WHEN SHE COMES TO THE UNIT FOR ROUNDS. INFORMED PATIENTS DAUGHTER THAT IS BUSY WITH PROCEDURES THIS AM.
--- NOTE | 2019-03-03 13:08 | NUR ---
NG TUBE PLACED TO LEFT NARE AT THIS TIME. UPON INSERTION OF NGTUBE, EMERALD GREEN SECRETIONS DRAINED FROM END OF TUBE. TUBE SECECURED WITH TAPE AND ON INTERMITTENT SUCTION AT THIS TIME. 200 ML OF EMEARLD GREEN SECRETIONS TO DRAINAGE CANISTER AT THIS TIME. PATIENT TOLERATED PLACEMENT OF TUBE WELL. STAT CXR ORDERED FOR PLACEMENT. AWAITING CXR NOW. CALL LIGHT WITHIN REACH.
--- NOTE | 2019-03-03 13:30 | NUR ---
PATIENT HAS POOR IV ACCESS. OBTAINED ORDER FOR MIDLINE PLACEMENT FROM . CALLED ER, LEXIE WORKS LEIGH. ROOSEVELT STATED SHE WOULD LET HER KNOW OF THE ORDER WHEN SHE GETS HERE LEIGH.
[2019-03-03 13:31] VITALS: BP 125/73
--- NOTE | 2019-03-03 13:51 | NUR ---
PATIENTS DAUGHTER IS AT BEDSIDE AND IS REFUSING PATIENT TO BE STUCK FOR LABS AT THIS TIME. PATIENTS DAUGHTER STATES NOT UNTIL A LINE IS PLACED. ORDER IS FOR MIDLINE. MIDLINES ARE NOT USED FOR BLOOD WITHDRAWL. WILL OBTAIN ORDER FOR PICC.
--- NOTE | 2019-03-03 14:05 | NUR ---
SPOKE WITH MACHINE SNELLER DHIRAJ. PATIENT HAS HAD AN ORDER SINCE 02/27/19 TO HAVE A MIDLINE PLACED AND THIS INDEPENDENT CONTRACTOR PLACED ANOTHER ORDER TODAY. MACHINE SNELLER STATES THOSE HAVE TO BE PUT IN [place]. THIS INDEPENDENT CONTRACTOR STATES THAT LEXIE IS WORKING ER TONIGHT AND IS CERTIFIED AND MACHINE SNELLER STATES SHE PROBABLY WILL NOT PLACE IT BECAUSE SHE IS CHARGE OF ER TONIGHT. MACHINE SNELLER STATES THAT MD WILL HAVE TO ORDER A CENTRAL LINE.
--- NOTE | 2019-03-03 14:30 | NUR ---
PATIENTS GRANDDAUGHTER AT THE DESK. WITH PERMISSION FROM THE PATIENT, DISCUSSED PATIENT WITH THE GRANDDAUGHTER. REVIEWED NOTES. DISCUSSED PLAN OF CARE FOR PATIENT.
--- NOTE | 2019-03-03 14:50 | NUR ---
ORDER FOR CENTRAL LINE RECIEVED DUE PREVIOUS UNSUCCESSFUL ATTEMPTS TO PLACE A MIDLINE DOCUMENTED IN CHART.
--- NOTE | 2019-03-03 14:55 | NUR ---
MADE AWARE OF THE NEED FOR CENTRAL LINE PLACEMENT.
--- NOTE | 2019-03-03 15:00 | NUR ---
CONSENTS SIGNED AND ON THE CHART FOR CENTRAL LINE PLACEMENT.
--- NOTE | 2019-03-03 15:30 | NUR ---
HERE FOR CENTRAL LINE PLACEMENT AT BEDSIDE. ALL EQUIPMENT READY MD ARRIVED. PATIENTS ONE DAUGHTER ALLOWED TO STAY IN ROOM PER PATIENT REQUEST PER MD.
[2019-03-03 15:34] VITALS: Ht 162.6 cm; Wt 77.2 kg
--- NOTE | 2019-03-03 16:08 | NUR ---
INSERTION OF CENTRAL LINE TO LEFT SUBCLAVIAN COMPLETE. ORDER PLACED FOR STAT CXR TO VERIFY PLACMENT OF CENTRAL LINE. PATIENT TOLERATED PROCEDURE WELL. NO DISTRESS. CENTRAL LINE DRESSING DATE. SWAB CAPS PATENT TO LUMENS.
[2019-03-03 16:47] LABS: BASOPHILS 0.2 % (0-2); EOSINOPHILS 0.8 % (0-7); HEMATOCRIT 28.6 % (36.0-48.0); HEMOGLOBIN 9.6 g/dL (12-16); IMMATURE GRANULOCYTES 0.4 % (0-5); LYMPHOCYTES 12.9 % (15-50); MCH 29.8 pg (26.0-34.0); MCHC 33.6 g/dL (31.0-37.0); MCV 88.8 fL (80.0-100.0); MONOCYTES 7.6 % (2-11); NEUTROPHILS 78.1 % (40-80); PLATELET COUNT 111 10x3/uL (130-400); RBC 3.22 10x6/uL (4.00-5.40); RDW 13.6 % (11.5-14.5)
[2019-03-03 16:51] LABS: WBC 10.4 10x3/uL (4.8-10.8)
[2019-03-03 17:01] LABS: ALBUMIN 2.6 g/dL (3.4-5.0); ANION GAP 15.8 mmol/L (8-16); BILIRUBIN - TOTAL 0.46 mg/dL (0.2-1.3); CALCIUM 11.4 mg/dL (8.5-10.1); CARBON DIOXIDE 18.8 mmol/L (21.0-32.0); CREATININE - SERUM 2.1 mg/dL (0.6-1.3); MAGNESIUM - SERUM 1.1 mg/dL (1.8-2.4); POTASSIUM - SERUM 3.6 mmol/L (3.5-5.1)
--- NOTE | 2019-03-03 17:23 | NUR ---
PATIENT TOLERATING CLINIMIX, LR, AND ZOFRAN WELL. DR. OWEN ON UNIT AND PER REQUEST, REVIEWED IV FLUIDS THAT PATIENT IS RECEIVING AND AND NO NEW ORDERS RECEIVED. PATIENTS DAUGHTER REMAINS AT BEDSIDE. CALL LIGHT WITHIN REACH.
[2019-03-03 17:28] VITALS: BP 128/65
--- NOTE | 2019-03-03 17:50 | NUR ---
22 GAUGE IV REMOVED FROM RIGHT THUMB PATIENT NOW HAS A CENTRAL LINE. CATHETER TIP INTACT. TOLERATED IV REMOVAL WELL. NO BLEEDING FROM SITE. 2X2 GAUZE APPLIED AND SECURED WITH TAPE.
--- NOTE | 2019-03-03 19:30 | NUR ---
EVENING ROUNDS MADE. DAUGHTER AT BEDSIDE. PT SLEEPING. NGT NOTED, LIS. L SUBCLAVIAN WITH ZOFRAN @ 4.8, LR @ 75, CLINAMIX @ 30, PATENT, NO REDNESS OR EDEMA NOTED. DEPENDENT EDEMA NOTED TO ALL EXT. SCD'S ON. ABD DISTENDED. FALL PRECAUTIONS IN PLACE. BED LOWERED AND LOCKED. CL IN REACH. WILL CTM.
[2019-03-03 19:35] VITALS: BP 129/68
--- NOTE | 2019-03-03 20:55 | NUR ---
INCONTINENT CARE PROVIDED TO PT. SUPPOSITORY GIVEN. PT ASSISTED UP IN BED. NGT TO MARIAH HERR DRAINAGE NOTED. DENIES PAIN. DIFFICULTY NOTED DURING SPEECH. FALL PRECAUTIONS IN PLACE. WILL CTM.
--- NOTE | 2019-03-03 23:02 | NUR ---
PT C/O PAIN IN THROAT. CHLORASEPTIC SPRAY GIVEN X 1 DOSE. PT STATES INSTANT RELIEF. NO FURTHER CONERNS AT THIS TIME. PT COVERED WITH BLANKETS. NGT TO LIS. IV TO L SUBCLAVIAN, DRSG C/D/I, NO REDNESS OR EDEMA NOTED, PATENT. BREATHING EVEN AND UNLABORED. SCD'S ON. FALL PRECAUTIONS IN PLACE. WILL CTM.
[2019-03-04] VITALS: BP 137/69
[2019-03-04 04:00] VITALS: BP 122/70
[2019-03-04 05:10] LABS: BASOPHILS 0.2 % (0-2); EOSINOPHILS 2.4 % (0-7); HEMATOCRIT 26.5 % (36.0-48.0); HEMOGLOBIN 8.8 g/dL (12-16); IMMATURE GRANULOCYTES 0.3 % (0-5); LYMPHOCYTES 18.5 % (15-50); MCH 29.7 pg (26.0-34.0); MCHC 33.2 g/dL (31.0-37.0); MCV 89.5 fL (80.0-100.0); MEAN PLATELET VOLUME 11.2 fL (7.4-10.4); MONOCYTES 8.9 % (2-11); NEUTROPHILS 69.7 % (40-80); PLATELET COUNT 103 10x3/uL (130-400); RBC 2.96 10x6/uL (4.00-5.40); RDW 13.9 % (11.5-14.5)
[2019-03-04 05:13] LABS: WBC 6.3 10x3/uL (4.8-10.8)
[2019-03-04 05:21] LABS: ALBUMIN 2.4 g/dL (3.4-5.0); BILIRUBIN - TOTAL 0.43 mg/dL (0.2-1.3); CALCIUM 11.5 mg/dL (8.5-10.1); CARBON DIOXIDE 23.2 mmol/L (21.0-32.0); CREATININE - SERUM 1.9 mg/dL (0.6-1.3); POTASSIUM - SERUM 3.2 mmol/L (3.5-5.1); PROTEIN - SERUM 4.9 g/dL (6.4-8.2)
--- NOTE | 2019-03-04 06:04 | NUR ---
PT GIVEN A BATH. INCONTINENT CARE PROVIDED. WILL CTM.
--- NOTE | 2019-03-04 07:00 | NUR ---
RECEVIED REPORT. ASSUMED CARE OF PATIENT. PATIENT WITH EYES CLOSED, EASILY AROUSED. RESP EVEN AND UNLABORED. IV FLUIDS INFUSING ORDERED, CONTINUES TO LOW INTERMITTENT SUCTION. NEW CANISTER PLACED AT 0630 PER NOC SHIFT NURSE. NO DISTRESS.
--- NOTE | 2019-03-04 07:44 | NUR ---
PATIENT RETURNED FROM CTA. RECONNECTED TO SUCTION AND FLUIDS. NO DISTRESS. RESTING WELL.
[2019-03-04 09:25] VITALS: BP 127/71
--- NOTE | 2019-03-04 11:52 | NUR ---
INCONTINENT CARES PROVIDED. TURNED AND REPOSITIONED. NO DISTRESS. CALL LIGHT WITIN REACH.
--- NOTE | 2019-03-04 12:59 | NUR ---
CALLED PHARMACY TO REQUEST ANOTHER BAG OF ZOFRAN FOR PATIENT.
[2019-03-04 14:03] VITALS: BP 137/67
--- NOTE | 2019-03-04 16:54 | NUR ---
RESTING PEACEFULLY. FAMILY AT BEDSIDE. TOLERATING IV FLUIDS/MEDS WELL. NO DISTRESS.
[2019-03-04 20:00] VITALS: BP 132/73
--- NOTE | 2019-03-04 20:20 | NUR ---
INITIAL ROUNDS COMPLETED AT 1915HRS. PT INCONTINENT OF URINE. PT CLEANED BY STAFF AND DAUGHTER. REPOSITIONED IN BED RO COMFORT. ASSESSMENT COMPLETED A 2019 HRS. SRPER CM HR 75. PT ALERT AND ORIENTEDTO PERSON,PLACEANDTIME. [place]. TREMORS NOTED TO UPPER EXTREMITIES AND HEAD. SPEECH WITH TREMORS. LUNGS DIMINISHED IN BASES BILAT. LARGE VENTRAL HERNIANOTED. ABD WITH HYPOACTIVE BS NOTED. NGT TO L NARES WITH LIS. GRREN EXUDATE NOTED. 3+ PEDAL EDEMAL. PALPABLE PERIPHERAL PULSES. BRUISING NOTED TO L ARM. SCAB TO R HIP. LTISC WITH ALIYAH DRIP AT 4.7CC/HR TO MEDIAL PORT, NS AT 75CC/HR TO DISTAL POST AND CLINIMIX AT 30CC/HR TO PROXIMAL PORT. SCD'S IN USE. REMOVED AND SKIN INSPECTED. NO BREAKDOWN NOTED. SR UP X2, CALL LIGHT WITHIN REACH.
--- NOTE | 2019-03-04 21:33 | NUR ---
PM MEDS ADMINISTERED. PT CLEAN AND DRY. SR UP X2, CALL LIGHT WITHIN REACH.
--- NOTE | 2019-03-04 23:06 | NUR ---
PT PULLED OUT NGT AT 2205 HRS. PT REFUSED FOR REINSERTION. EXPLAINED RATIONALE FOR NGT BUT PT CONTINUES TO REFUSE. STATES SHE IS NOT NAUSEATED AND WILL PULL OUT AGAIN IF PLACED BACK IN. STATED SHE WILL SPEAK TO MD IN AM. PT INCONTINENT OF URINE. INCONTINENT CARE DONE. SR UP X2, CALL LIGHT WITHIN REACH.
[2019-03-05] VITALS: BP 124/62
--- NOTE | 2019-03-05 00:42 | NUR ---
PT AWAKE; DENIES ANY DISCOMFORT OR NAUSEA AT THIS TIME. CONTINUES TO REFUSE NGT. SR UP X2, CALL LIGHT WITHIN REACH.
--- NOTE | 2019-03-05 02:24 | NUR ---
PT AWAKE; DENIES ANY DISCOMFORT OR NAUSEA. SR UP X2, CALL LIGHT WITHIN REACH.
[2019-03-05 04:00] VITALS: BP 156/72
--- NOTE | 2019-03-05 04:24 | NUR ---
VSS. PT DENIES ANY NAUSEA. INCONTINENT OF URINE AND BOWEL. INCONTINENT CARE DONE. BED LINENS CHANGED. REPOSITONED IN BED FOR COMFOR. SR UP X2, CALL LIGHT WITHIN REACH.
[2019-03-05 05:41] LABS: HEMATOCRIT 25.8 % (36.0-48.0); HEMOGLOBIN 8.6 g/dL (12-16); MCH 29.6 pg (26.0-34.0); MCHC 33.3 g/dL (31.0-37.0); MCV 88.7 fL (80.0-100.0); MEAN PLATELET VOLUME 11.9 fL (7.4-10.4); PLATELET COUNT 96 10x3/uL (130-400); RBC 2.91 10x6/uL (4.00-5.40); RDW 13.7 % (11.5-14.5); WBC 6.4 10x3/uL (4.8-10.8)
[2019-03-05 06:20] LABS: ALBUMIN 2.5 g/dL (3.4-5.0); BILIRUBIN - TOTAL 0.68 mg/dL (0.2-1.3); CREATININE - SERUM 2.1 mg/dL (0.6-1.3)
[2019-03-05 06:33] LABS: ANION GAP 12.8 mmol/L (8-16)
[2019-03-05 06:34] LABS: POTASSIUM - SERUM 2.8 mmol/L (3.5-5.1)
--- NOTE | 2019-03-05 06:40 | NUR ---
PT INCONTINENT OF URINE AND A LARGE SOFT BM. INCONTINENT CARE DONE. AM K+ 2.8. KCL 10MEQ IV X6 TO BE ADMINISTERED. NEEDS MET; WILL CONTINUE TO MONITOR.
--- NOTE | 2019-03-05 07:40 | NUR ---
REPORT RECEIVED. WILL CONTINUE WITH POC. PT CURRENTLY LYING SUPINE. CALL LIGHT W/I REACH. PT IS AAO AND HAS FINE TREMOR. PT IS BEDFAST. RR EVEN AND UNLABORED ON RA. ZOFRAN INFUSING @4.7, LR INFUSING @75 AND CLINIMAX INFUSING @30 VIA L.SUBCLAVIAN CVL. PT DENIES ANY NEEDS AT THIS TIME. NO S/S OF DISTRESS NOTED. WILL CTM.
[2019-03-05 08:30] LABS: LYMPHOCYTES 18 % (15-50); MONOCYTES 14 % (2-11); NEUTROPHILS 68 % (40-80); PLATELET ESTIMATE DECREASED
[2019-03-05 08:55] VITALS: BP 160/76
--- NOTE | 2019-03-05 09:35 | NUR ---
RECEIVED TELEPHONE ORDERS FROM TO PLACE NG TUBE AND SET TO LOW INTER. SUCTION. WILL PLACE NG TUBE. WILL CTM.
--- NOTE | 2019-03-05 10:27 | NUR ---
PT REFUSED NG TUBE. NOTIFIED . WILL CTM.
[2019-03-05 12:36] VITALS: BP 130/73
--- NOTE | 2019-03-05 14:30 | NUR ---
I have reviewed this patient and I concur with the Shift Assessment completed by the Licensed Practical Nurse today this shift.
[2019-03-05 16:43] VITALS: BP 126/69
--- NOTE | 2019-03-05 19:20 | NUR ---
ATIVAN 0.5 MG GIVEN IV FOR S/S AGITATION. DAUGHTER AT BED SIDE.
[2019-03-05 20:00] VITALS: BP 151/83
[2019-03-06] VITALS: BP 136/74
--- NOTE | 2019-03-06 00:11 | NUR ---
STATE AUDITOR AT BED SIDE, BATH AND LINEN CHANGE COMPLETE.
--- NOTE | 2019-03-06 02:25 | NUR ---
I have reviewed this patient and I concur with the Shift Assessment completed by the Licensed Practical Nurse today this shift.
--- NOTE | 2019-03-06 03:30 | NUR ---
RESTING WITH EYES CLOSED, RESPERATIONS NON LABORED. BED LOW, CL IN REACH.
[2019-03-06 04:20] VITALS: BP 129/67
[2019-03-06 04:58] LABS: BASOPHILS 0.2 % (0-2); EOSINOPHILS 2.2 % (0-7); HEMATOCRIT 23.4 % (36.0-48.0); HEMOGLOBIN 7.7 g/dL (12-16); IMMATURE GRANULOCYTES 0.2 % (0-5); LYMPHOCYTES 19.4 % (15-50); MCH 29.6 pg (26.0-34.0); MCHC 32.9 g/dL (31.0-37.0); MEAN PLATELET VOLUME 11.5 fL (7.4-10.4); MONOCYTES 7.3 % (2-11); NEUTROPHILS 70.7 % (40-80); RDW 14.2 % (11.5-14.5)
[2019-03-06 05:01] LABS: PLATELET COUNT 76 10x3/uL (130-400); WBC 4.6 10x3/uL (4.8-10.8)
[2019-03-06 05:44] LABS: ALBUMIN 2.3 g/dL (3.4-5.0); ANION GAP 11.3 mmol/L (8-16); BILIRUBIN - TOTAL 0.37 mg/dL (0.2-1.3); CARBON DIOXIDE 21.6 mmol/L (21.0-32.0); CREATININE - SERUM 2.2 mg/dL (0.6-1.3); POTASSIUM - SERUM 3.9 mmol/L (3.5-5.1); PROTEIN - SERUM 4.6 g/dL (6.4-8.2)
--- NOTE | 2019-03-06 07:30 | NUR ---
AM ROUNDS- PT RESTING COMFORTABLY IN BED, WITH EYES CLOSED, EASILY AROUSES TO VOICE. PT DENIES ANY NEEDS AT THIS TIME. A/O X4, RESP EVEN AND NONLABORED ON RA. SPEECH A LITTLE GARBLE. LT CVL INFUSIGN ZOFRAN AT 4.7CC/HR, AND LR AT 75CC/HR. EDEMA NOTED TO BILAT LEGS. SCDS ON BILAT. APPLIED RICH MOISTERIZER TO PT'S LIPS, CALL LIGHT IN REACH, BEDSIDE RAILS X2, NAD NOTED, WILL CONTINUE PLAN OF CARE.
[2019-03-06 09:16] VITALS: BP 126/64
--- NOTE | 2019-03-06 11:38 | NUR ---
PT RESTING COMFORTABLY IN BED, DENIES ANY NEEDS AT THIS TIME. CALL LIGHT IN REACH, FAMILY ASING WHEN DR. FLAHERTY WILL BE BY TO SEE PT. INFORMED FAMILY THAT I DO NOT HAVE AT TIME, BUT WILL CALL AND TRY TO FIND OUT. WILL CONTINUE TO MONITOR.
--- NOTE | 2019-03-06 12:17 | NUR ---
Nutrition follow-up: Pt NPO at this time; possible J-tube placement soon NGT out and pt refusing to have it replaced ProcalAmine PPN infusing @ 30 ml/hr LR @ 75 ml/hr Labs reviewed Pt with edema to bilateral legs +BM Wt: 180# Recommend starting Osmolite 1.0 guerda @ 30 ml/hr with gradual increase to goal rate of 75 ml/hr with 25 ml H2O flush Q hour. RDN following.
--- NOTE | 2019-03-06 12:37 | NUR ---
NOTIFIED FAMILY AT BEDSIDE THAT DR. FLAHERTY IS IN SURGERY RIGHT NOW, BUT ALYSSA PULIDO WILL CALL ME BACK TO LET ME KNOW WHAT THE PLANS ARE FOR TODAY REGARDING PEG TUBE PLACEMENT.
[2019-03-06 12:38] VITALS: BP 140/75
--- NOTE | 2019-03-06 13:00 | NUR ---
CALLED PHARMACY AND SPOKE WITH DEYVI, INFOMRED HIM THAT I NEED ZOFRAN FOR PT.
--- NOTE | 2019-03-06 15:36 | NUR ---
UNIT OF PRBC STARTED INFUSING. PRE- VITALS FOLLOWED TEMP 98.1, HR 69, BP 113/51. O2 100% RA. PT DENIES ANY NEEDS AT THIS TIME. CALL LIGHT IN REACH, FAMILY AT BEDSIDE, NAD NOTED, WILL STAY WITH PT FOR THE FIRST 15MIN.
--- NOTE | 2019-03-06 16:39 | NUR ---
NOTIFIED PT AND FAMILY THAT PT'S PROCEDURE HAS BEEN MOVED TO TOMORROW AROUND NOON.
[2019-03-06 17:01] VITALS: BP 113/51
[2019-03-06 20:00] VITALS: BP 170/93
--- NOTE | 2019-03-06 21:12 | NUR ---
HS PO MEDS HELD DUE TO PT BEING NPO. SUPPOSITORY GIVEN ORDERED.
--- NOTE | 2019-03-06 23:49 | NUR ---
COMMERCIAL ARTIST LETTERING AT BED SIDE, PT INCONTINENT OF B&B.
[2019-03-07] VITALS: BP 145/79
[2019-03-07 04:00] VITALS: BP 142/86
--- NOTE | 2019-03-07 04:07 | NUR ---
PT VOMITED, MEDICAL BILLING CLERK AT BED SIDE TO CLEAN PT. CVL DRSG CHANGED DUE TO BEING SOILED.
--- NOTE | 2019-03-07 04:46 | NUR ---
I have reviewed this patient and I concur with the Shift Assessment completed by the Licensed Practical Nurse today this shift.
[2019-03-07 04:59] LABS: BASOPHILS 0.3 % (0-2); EOSINOPHILS 1.4 % (0-7); IMMATURE GRANULOCYTES 0.2 % (0-5); LYMPHOCYTES 17.8 % (15-50); MCH 29.4 pg (26.0-34.0); MCHC 33.3 g/dL (31.0-37.0); MCV 88.2 fL (80.0-100.0); MEAN PLATELET VOLUME 11.8 fL (7.4-10.4); MONOCYTES 6.9 % (2-11); NEUTROPHILS 73.4 % (40-80); PLATELET COUNT 84 10x3/uL (130-400); RDW 14.2 % (11.5-14.5)
[2019-03-07 05:27] LABS: ALBUMIN 2.5 g/dL (3.4-5.0); BILIRUBIN - TOTAL 0.81 mg/dL (0.2-1.3); CARBON DIOXIDE 20.6 mmol/L (21.0-32.0); CREATININE - SERUM 2.4 mg/dL (0.6-1.3); POTASSIUM - SERUM 3.6 mmol/L (3.5-5.1)
[2019-03-07 05:38] LABS: CALCIUM 12.1 mg/dL (8.5-10.1)
[2019-03-07 05:45] LABS: HEMATOCRIT 28.5 % (36.0-48.0); HEMOGLOBIN 9.5 g/dL (12-16); RBC 3.23 10x6/uL (4.00-5.40); WBC 6.2 10x3/uL (4.8-10.8)
[2019-03-07 07:56] VITALS: BP 144/87
[2019-03-07 08:42] LABS: PLATELET ESTIMATE DECREASED
--- NOTE | 2019-03-07 11:18 | NUR ---
PT TRANSFERED TO OR.
--- NOTE | 2019-03-07 13:14 | NUR ---
RECEIVED CALL FROM [facility] NURSE.
[2019-03-07 13:29] VITALS: BP 139/77
--- NOTE | 2019-03-07 13:35 | NUR ---
RECEIVED PT BACK TO ROOM 210, VIA BED, PT SLEEPY BUT EASILY AROUSES TO VOICE. PEG TUBE NOTED TO LT SIDE OF ABD. VITAL SIGNS STABLE, PLACED PT ON FREQUENT VITAL SIGNS. PT DENIES ANY NEEDS AT THIS TIME. CALL LIGHT IN REACH, NAD NOTED, WILL CONTINUE TO MONITOR.
--- NOTE | 2019-03-07 19:36 | NUR ---
ASSESSMENT COMPLETE. PT ALERT AND WITH GARBLED SPEECH. RESPERATIONS NON LABORED ON O2 AT 2 LITERS VIA NC. LEFT SUBCLAVIAN CVL WITH ZOFRAN AT 4.7, LR AT 20 AND CLINIMIX AT 50 CC/HR. DRSG TO CVL C.D.I. PEG TUBE DRAINING TO GRAVITY. GREEN BILE LOOKING FLUID NOTED IN BAG. NO NEEDS VOICED AT THIS TIME, BED LOW, CL IN REACH.
[2019-03-07 20:00] VITALS: BP 167/86
[2019-03-08] VITALS: BP 138/76
--- NOTE | 2019-03-08 03:02 | NUR ---
I have reviewed this patient and I concur with the Shift Assessment completed by the Licensed Practical Nurse today this shift.
[2019-03-08 04:00] VITALS: BP 126/87
--- NOTE | 2019-03-08 04:11 | NUR ---
RESTING WITH EYES CLOSED, RESPERATIONS EVEN, NO S/S DISTRESS NOTED.
[2019-03-08 04:51] LABS: BASOPHILS 0.1 % (0-2); EOSINOPHILS 1.2 % (0-7); HEMATOCRIT 27.5 % (36.0-48.0); HEMOGLOBIN 9.2 g/dL (12-16); IMMATURE GRANULOCYTES 0.1 % (0-5); LYMPHOCYTES 15.1 % (15-50); MCH 29.7 pg (26.0-34.0); MCHC 33.5 g/dL (31.0-37.0); MCV 88.7 fL (80.0-100.0); MEAN PLATELET VOLUME 12.4 fL (7.4-10.4); MONOCYTES 5.5 % (2-11); PLATELET COUNT 71 10x3/uL (130-400); RDW 14.8 % (11.5-14.5); WBC 7.2 10x3/uL (4.8-10.8)
[2019-03-08 04:57] LABS: ALBUMIN 2.4 g/dL (3.4-5.0); ANION GAP 11.3 mmol/L (8-16); BILIRUBIN - TOTAL 0.74 mg/dL (0.2-1.3); CARBON DIOXIDE 22.3 mmol/L (21.0-32.0); CREATININE - SERUM 2.6 mg/dL (0.6-1.3); POTASSIUM - SERUM 3.6 mmol/L (3.5-5.1); PROTEIN - SERUM 4.9 g/dL (6.4-8.2)
[2019-03-08 04:59] LABS: CALCIUM 12.1 mg/dL (8.5-10.1)
--- NOTE | 2019-03-08 07:15 | NUR ---
REPORT RECIEVED AND MORNING ROUNDING COMPLETE. PT LAYING IN BED EYES CLOSED BREATHING SHALLOW AND EVEN. PT HAS NC @ 2L. IV RUNNING. PT HAS NO S/SX OF DISTRESS. CALL LIGHT WITHIN REACH AND BED IN LOWEST POSITION.
[2019-03-08 07:46] VITALS: BP 150/65
--- NOTE | 2019-03-08 08:44 | NUR ---
Nutrition consult for PEG tube feeding: Pt s/p PEG tube placement 03/07/19 Received order to start TF today @ noon today. RDN will order Osmolite 1.0 guerda @ 25 ml/hr with gradual increase to goal rate of 75 ml/hr with 100 ml H2O flush Q [address] RDN following.
[2019-03-08 11:39] VITALS: BP 131/66
--- NOTE | 2019-03-08 12:14 | NUR ---
CALLED DIETARY FOR PT'S OSMOLITE SO WE CAN START HER FEEDINGS. DIETARY STATED THEY WILL BRING IT TO THE FLOOR.
--- NOTE | 2019-03-08 13:05 | NUR ---
CALLED CENTRAL SUPPLY. IN NEED OF A KANGROO PUMP TO START PT'S FEEDIGNS
--- NOTE | 2019-03-08 13:34 | NUR ---
STARTED PT'S FEEDINGS. USING KANGAROO PUMP.
[2019-03-08 15:37] VITALS: BP 143/65
[2019-03-08 20:00] VITALS: BP 132/92
--- NOTE | 2019-03-08 21:45 | NUR ---
CALLED PHARMACY ABOUT MEDICATION CONTAINING SALMON WHEN PT HAS SEAFOOD ALLERGY, SHELLFISH DERIVED. PHARMACY STATED STATED IT SHOULD BE FINE SO LONG PT DOES NOT HAVE SPECIFIC ALLERGY TO SALMON. VERIFIED WITH PT, WHEN ASKED ABOUT SEAFOOD ALLERGY AND ASK IF SHE HAS BEEN ABLE TO HAVE SALMON, PT SAID, "NO SALMON."
--- NOTE | 2019-03-09 03:31 | NUR ---
I have reviewed this patient and I concur with the Shift Assessment completed by the Licensed Practical Nurse today this shift.
[2019-03-09 04:00] VITALS: BP 141/91
--- NOTE | 2019-03-09 07:30 | NUR ---
AM ROUNDS COMPLETED. INTRODUCED MYSELF TO PT PRIMARY RN FOR TODAYS SHIFT. PT IS RESTING QUIETLY IN BED WITH EYES CLOSED. RR NONLABORED ON RA. NO S/S OF DISTRESS OR ANY CURRENT NEEDS AT THIS TIME. CL IN REACH, BED IN LOWEST, SIDE RAILS X2 AND BUILT IN BED ALARM ON. WILL CPOC.
[2019-03-09 07:56] VITALS: BP 136/78
--- NOTE | 2019-03-09 09:00 | NUR ---
SHIFT ASSESSMENT COMPLETED. PT IS A&O SITTING UP IN BED ON HER L.SIDE. TURNED PT ONTO HER R.SIDE TO RELIEVE PRESSURE. REPOSITIONED BILAT FEET IN BED AND ELEVATED ON PILLOWS. PT HAS BILAT SWOLLEN FEET. NO CURRENT NEEDS AT THIS TIME. WILL CTM.
--- NOTE | 2019-03-09 10:26 | MORECARE ---
CASE MANAGEMENT DISCHARGE SUMMARY PATIENT: SAMANTA HUERTA UNIT: [id number] ADM DATE: 02/25/19 AGE: 78 : 41 SEX: F ROOM/BED: D.0579 AUTHOR: JELLY,DOC PHYSICIAN: REFERRING PHYSICIAN: KARISSA PETERSON MD DATE OF SERVICE: 03/09/19 Discharge Plan Patient Name: SAMANTA HUERTA Facility: [facility]:[place] : 1940 Planned Disposition: Home with Home Health Anticipated Discharge Date: Discharge Date: Expected LOS: Initial Reviewer: [id number] Initial Review Date: 03/02/2019 Generated: 03/09/19 11:26 am DCP- Discharge Planning Updated by [id number]: Leonid Sandy on 03/02/19 12:[address] Patient Name: SAMANTA HUERTA Admission Status: ER Accout number: [id number] Admission Date: 02-25-2019 : 1940 Admission Diagnosis:NAUSEA WITH VOMITING, UNSPECIFIED Attending: KARISSA PETERSON Current LOS: 5 Anticipated DC Date: Planned Disposition: Home with Home Health Primary Insurance: MEDICARE A & B PLANNED EXTERNAL PROVIDER: [facility] Discharge Planning Comments: CM MET WITH PT IN ROOM TO DISCUSS DISCHARGE PLANNING AND NEEDS. PT REPORTS LIVING AT HOME DEPENDENTLY ON [place], SPOUSE AND DAUGHTER WHO LIVES NEXT DOOR WHO ASSISTS WITH MEDICATIONS, BATH AND TRANSFERS. PT HAS ARCADIO LIFT, WHEELCHAIR AND HOSPITAL BED AT HOME. PT HAS NO MEDICAL EQUIPMENT PROVIDER PREFERENCE. PT HAS HOME HEALTH FOR NURSING AND PHYSICAL THERAPY WITH [facility]. CM DISCUSSED AVAILABILITY OF HOME HEALTH, REHAB SERVICES AND MEDICAL EQUIPMENT. PT DENIES NEED OF REHAB OR ADDITIONAL MEDICAL EQUIPMENT. PT REPORTS NEEDING AMBULANCE FOR DISCHARGE HOME. HOME HEALTH PROVIDER LISTING GIVEN, PT SIGNED CONSENT FOR [facility]. CM CALLED [facility], , VERIFIED PT IS ACTIVE AND ON HOLD FOR HOME HEALTH SERVICES. CM FAXED UPDATE TO [facility] AT [phone]. FOR DISCHARGE HOME AND RESUPTION OF HOME HEALTH SERVICES, NOTIFY [facility] AT [phone], FAX DISCHARGE INFORMATION TO [facility] AT [phone]. Turkish Rubber: Leonid Sandy DCPIA - Discharge Planning Initial Assessment Updated by [id number]: Leonid Sandy on 03/02/19 1:28 pm * Is the patient Alert and Oriented? Yes * How many steps to enter\exit or inside your home? RAMP * PCP DR. MENDOZA IN [place] * [facility] IN [place] * Preadmission Environment Home with Family * ADLs Partial Dependent * Partial ADLs (Assistance needed) Ambulation Bathing Dressing Medication Management Toileting Transfers * Equipment Hospital Bed Arcadio Lift Wheelchair * Other Equipment NO MEDICAL EQUIPMENT PROVIDER PREFERENCE * List name and contact numbers for known caregivers / representatives who currently or will assist patient after discharge: MARY OLGUIN, DTR, * Verbal permission to speak to the caregivers and representatives has been obtained from the patient. Yes * Community resources currently utilized Home Health * Please name any agencies selected above. [facility], [facility]URSING AND [facility]YSICAL THERAPY * Additional services required to return to the preadmission environment? No * Can the patient safely return to the preadmission environment? Yes * Has this patient been hospitalized within the prior 30 days at any hospital? Yes External Providers External Provider: [facility] Next Contact Date: 03/09/2019 Service Request Date: Service Type: Resolution: Reviewer: Comments: Coverage Notice Reviewer: [id number] - Leonid Sandy Notice Issued Date-Time: 03/02/2019 9:40 Notice Type: Patient Choice Letter Notice Delivered To: Patient Relationship to Patient: Brand Protection Manager Name: Delivery Method: HAND - Hand Delivered Radha Days: Prior Verbal Notification: Recipient Understood Notice: Yes Recipient Signature: Yes Med Rec Note Co-signed by Attending: Coverage Notice Comment: [facility] Last DP export: 03/02/19 12:41 pm Patient Name: SAMANTA HUERTA Page [id number] at 1026 All edits/amendments must be made on the electronic document DICTATION DATE: 03/09/19 1026 WEATHERIZATION AND HOUSING INSPECTOR: DEISY 03/09/19 1026 RPT#: [id number] DC DATE: STATUS: ADM IN [facility] [address] [place] [address] END OF REPORT
[2019-03-09] MEDS ORDERED: SENSIPAR90 MG PO (11:02)
--- NOTE | 2019-03-09 11:13 | MORECARE ---
CASE MANAGEMENT DISCHARGE SUMMARY PATIENT: SAMANTA HUERTA UNIT: [id number] ADM DATE: 02/25/19 AGE: 78 : 41 SEX: F ROOM/BED: D.8862 AUTHOR: JELLY,DOC PHYSICIAN: REFERRING PHYSICIAN: KARISSA PETERSON MD DATE OF SERVICE: 03/09/19 Discharge Plan Patient Name: SAMANTA HUERTA Facility: [facility]:[place] : 1940 Planned Disposition: Home with Home Health Anticipated Discharge Date: Discharge Date: Expected LOS: Initial Reviewer: [id number] Initial Review Date: 03/02/2019 Generated: 03/09/19 12:12 pm Comments DCP- Discharge Planning Updated by [id number]: Leonid Sandy on 03/09/19 10:[address] Patient Name: SAMANTA HUERTA Encounter No: [id number] : 1940 Primary Insurance: MEDICARE A & B Anticipated DC Date: Planned Disposition: Home with Home Health External Planned Provider: [facility] DCP follow-up note: CM RECEIVED DISCHARGE PLANNING ORDER. CM REVIEWED CHART, PT NOW ON TUBE FEEDING. CM MET WITH PT IN ROOM TO DISCUSS DISCHARGE PLANNING AND NEEDS. PT REPORTS CONTINUED PLAN TO RETURN HOME AT DISCHARGE, DECLINES NURSING FACILITY PLACEMENT FOR SENIOR CARE CARE OR REHAB SERVICES. PT WANTS RESUPTION OF HOME HEALTH WITH [facility]. CM DISCUSSED NEED FOR TUBE FEEDINGS AT HOME, PROVIDED PT WITH INFUSION SERVICE PROVIDERS. PT HAS NO PREFERENCE ON PROVIDER. IMPORTANT MESSAGE FROM MEDICARE PROVIDED AND EXPLAINED. PT WAS ABLE TO SIGN FIRST NAME ONLY. PT REPORTS INABILITY TO SIGN CONSENT FOR INFUSION SERVICES. CM COMPLETED WITH VERBAL CONSENT OF PT. PT VERIFIED HOME ADDRESS ON FACE SHEET AND INFORMED CM THAT IT IS OK TO DISCUSS DISCHARGE PLANNING AND HER CARE WITH HER MADISONULGHTER, MARY OLGUIN. CM CALLED MARY OLGUIN, , LEFT MESSAGE. CM RECEIVED RETURN CALL FROM MARY WHO REPORTS PLAN FOR PT TO RETURN HOME WITH HOME HEALTH AND CONTINUED FAMILY ASSISTANCE. SHE WOULD LIKE TO USE [facility] IF AVAILABLE. MARY REPORTS PREFERENCE ON [facility] FEEDS IF POSSIBLE. CM CALLED [facility], , SPOKE TO SIGIFREDO ALVAREZ AND PROVIDED REFERRAL INFORMATION, INFORMED THAT HOME HEALTH IS [facility]. CM FAXED REFERRAL TO [facility] AT [phone]. CM CALLED [facility], , NOTIFIED [place] OF DISCHARGE PLANNING ORDER [facility] NEW TUBE FEED AND [facility] PROVIDER. NOTIFY SIGIFREDO ALVAREZ OF [place], , WITH ANY CHANGES TO TUBE FEEDINGS TO COMPLETE ARRANGEMENTS FOR DISCHARGE. FOR DISCHARGE HOME AND RESUPTION OF HOME HEALTH SERVICES, NOTIFY [facility] AT [phone], FAX DISCHARGE INFORMATION TO [facility] AT [phone]. EHSAN MayesEMENT DCP- Discharge Planning Updated by [id number]: Leonid Sandy on 03/02/19 12:[address] Patient Name: SAMANTA HUERTA Admission Status: ER Accout number: [id number] Admission Date: 02-25-2019 : 1940 Admission Diagnosis:NAUSEA WITH VOMITING, UNSPECIFIED Attending: KARISSA PETERSON Current LOS: 5 Anticipated DC Date: Planned Disposition: Home with Home Health Primary Insurance: MEDICARE A & B PLANNED EXTERNAL PROVIDER: [facility] Discharge Planning Comments: CM MET WITH PT IN ROOM TO DISCUSS DISCHARGE PLANNING AND NEEDS. PT REPORTS LIVING AT HOME DEPENDENTLY ON [place], SPOUSE AND DAUGHTER WHO LIVES NEXT DOOR WHO ASSISTS WITH MEDICATIONS, BATH AND TRANSFERS. PT HAS ARCADIO LIFT, WHEELCHAIR AND HOSPITAL BED AT HOME. PT HAS NO MEDICAL EQUIPMENT PROVIDER PREFERENCE. PT HAS HOME HEALTH FOR NURSING AND PHYSICAL THERAPY WITH [facility]. CM DISCUSSED AVAILABILITY OF HOME HEALTH, REHAB SERVICES AND MEDICAL EQUIPMENT. PT DENIES NEED OF REHAB OR ADDITIONAL MEDICAL EQUIPMENT. PT REPORTS NEEDING AMBULANCE FOR DISCHARGE HOME. HOME HEALTH PROVIDER LISTING GIVEN, PT SIGNED CONSENT FOR [facility]. CM CALLED [facility], , VERIFIED PT IS ACTIVE AND ON HOLD FOR HOME HEALTH SERVICES. CM FAXED UPDATE TO [facility] AT [phone]. FOR DISCHARGE HOME AND RESUPTION OF HOME HEALTH SERVICES, NOTIFY [facility] AT [phone], FAX DISCHARGE INFORMATION TO [facility] AT [phone]. Prop And Scenery Maker: Leonid Sandy DCPIA - Discharge Planning Initial Assessment Updated by [id number]: Leonid Sandy on 03/02/19 1:28 pm * Is the patient Alert and Oriented? Yes * How many steps to enter\exit or inside your home? RAMP * PCP DR. MENDOZA IN [place] * [facility]acy [facility] IN [place] * Preadmission Environment Home with Family * ADLs Partial Dependent * Partial ADLs (Assistance needed) Ambulation Bathing Dressing Medication Management Toileting Transfers * Equipment Hospital Bed Arcadio Lift Wheelchair * Other Equipment NO MEDICAL EQUIPMENT PROVIDER PREFERENCE * List name and contact numbers for known caregivers / representatives who currently or will assist patient after discharge: MARY OLGUIN, DTR, * Verbal permission to speak to the caregivers and representatives has been obtained from the patient. Yes * Community resources currently utilized Home Health * Please name any agencies selected above. [facility]ER[facility] * Additional services required to return to the preadmission environment? No * Can the patient safely return to the preadmission environment? Yes * Has this patient been hospitalized within the prior 30 days at any hospital? Yes Coverage Notice Reviewer: [id number] Don Sandy Notice Issued Date-Time: 03/02/2019 9:40 Notice Type: Patient Choice Letter Notice Delivered To: Patient Relationship to Patient: Catalytic Converter Operator Name: Delivery Method: HAND - Hand Delivered Radha Days: Prior Verbal Notification: Recipient Understood Notice: Yes Recipient Signature: Yes Med Rec Note Co-signed by Attending: Coverage Notice Comment: [facility] Reviewer: [id number] Don Sandy Notice Issued Date-Time: 03/09/2019 10:00 Notice Type: IM Discharge Notice Notice Delivered To: Patient Relationship to Patient: Catalytic Converter Operator Name: Delivery Method: HAND - Hand Delivered Radha Days: Prior Verbal Notification: Recipient Understood Notice: Yes Recipient Signature: Yes Med Rec Note Co-signed by Attending: Coverage Notice Comment: Last DP export: 03/09/19 9:26 a Patient Name: SAMANTA HUERTA Page 52713 at 1113 All edits/amendments must be made on the electronic document DICTATION DATE: 03/09/191111 EMERGING TECHNOLOGIES DIRECTOR: DEISY 03/09/191111 RPT#: [id number] DC DATE: STATUS: ADM IN [facility] [address] [place] [address] END OF REPORT
[2019-03-09 11:17] LABS: BASOPHILS 0.1 % (0-2); EOSINOPHILS 2.5 % (0-7); HEMATOCRIT 28.9 % (36.0-48.0); HEMOGLOBIN 9.5 g/dL (12-16); IMMATURE GRANULOCYTES 0.3 % (0-5); LYMPHOCYTES 14.3 % (15-50); MCH 29.6 pg (26.0-34.0); MCHC 32.9 g/dL (31.0-37.0); MEAN PLATELET VOLUME 11.8 fL (7.4-10.4); MONOCYTES 5.8 % (2-11); PLATELET COUNT 62 10x3/uL (130-400); RBC 3.21 10x6/uL (4.00-5.40); RDW 14.7 % (11.5-14.5); WBC 7.7 10x3/uL (4.8-10.8)
[2019-03-09 11:30] LABS: PLATELET ESTIMATE DECREASED
[2019-03-09 11:32] LABS: ANION GAP 12.2 mmol/L (8-16); CARBON DIOXIDE 23.1 mmol/L (21.0-32.0); CREATININE - SERUM 3.1 mg/dL (0.6-1.3); POTASSIUM - SERUM 3.3 mmol/L (3.5-5.1)
[2019-03-09 11:35] LABS: CALCIUM 12.2 mg/dL (8.5-10.1)
[2019-03-09 11:37] VITALS: BP 139/65
--- NOTE | 2019-03-09 12:00 | NUR ---
CHECKED RESIDUAL AND NO RETURN. INCREASED TUBE FEEDING TO 65ML/HR ORDERED TO INCREASE BY 10CC Q6H IF RESIDUAL >100. FAMILY AT BEDSIDE. NO CURRENT NEEDS. WILL CTM.
--- NOTE | 2019-03-09 13:42 | NUR ---
Nutrition Follow Up: Pt was asleep at the time of RD visit. No family present. Interview deferred at this time. Pt currently on TF of Osmolite 1.0 @ 55 ml/hr. BM: 03/09/19 Wt loss noted Meds and labs reviewed Rec continue advancing TF 10 ml every 6-8 hours as tolerated to goal rate of 75 ml/hr. H2O flushes [address] following.
--- NOTE | 2019-03-09 14:51 | NUR ---
PT INCONTINENT OF BOWEL MOVEMENT SEMI FORMED BROWN. COMPLETE LINEN CHANGE AND BED BATH GIVEN BY BRAYDON CUADRA AT BEDSIDE. PT VOICED THANKS AND DENIES ANY NAUSEA OR DISCOMFORT TODAY. NO FAMILY PRESENT AT THIS TIME. CL IN REACH, BED IN LOWEST, SIDE RAILS X2. WILL CTM.
[2019-03-09 15:56] VITALS: BP 146/68
--- NOTE | 2019-03-09 18:03 | NUR ---
PT RESTING QUIETLY IN BED WITH FAMILY AT BEDSIDE. THEY ARE INQUIRING ABOUT DISCHARGE. NO CURRENT ORDERS HOWEVER WE ARE WORKING ON PLANNING. PT NOW GETTING HER PEG FEEDING AND HASNT HAD ANY NAUSEA FOR 72HRS HOWEVER REMAINS ON ZOFRAN DRIP. PT WILL NOT HAVE THE ZOFRAN DRIP AT HOME AND FAMILY ASKING IF SHE CAN DRINK BY MOUTH. PT IS ALLOWED HOWEVER THEY PREVIOUSLY REFUSED R/T NAUSEA. THEY ARE NOW WANTING TO TRY SO I PROVIDED HER WITH ICE CHIPS AND TURNED OFF ZOFRAN DRIP TO SEE IF SHE CAN HANDLE IT REQUESTED BY FAMILY. PT HAS MOSTLY REMAINED SLEEPING THROUGHOUT THE DAY AND DOESNT SEEM INTERESTED IN DRINKING OR DOING ANYTHING BUT WILL CONTINUE TO ENCOURAGE AND ASSIST FAMILY WITH THEIR WISHES. FAMILY ALSO STATES IF SHE BEGINS THE "NAUSEA/THROWING UP STAGE AGAIN" THEY WILL PUT HER ON HOSPICE BECAUSE THEY ARE NOT INTERESTED IN ANOTHER HOSPITAL ADMISSION. CHECKED RESIDUAL AND GOT 8CC OF STOMACH CONTENT APPEARING TO BE TUBE FEED. WILL INCREASE FEED TO GOAL OF 75CC. FAMILY VOICED THANKS. NO CURRENT NEEDS AT THIS TIME. WILL CTM.
--- NOTE | 2019-03-09 19:54 | NUR ---
EVENING ROUNDS COMPLETED. REPORT RECEIVED. PT SITTING UP IN BED WITH EYES OPEN, RR EVEN AND UNLABORED. LACTATED RINGERS INFUSING ORDERED. DAUGHTER AT BEDSIDE. NO S/S OF DISTRESS NOTED. INTRODUCED SELF TO PT AND FAMILY. PT DENIES FURTHER NEEDS AT THIS TIME. CALL LIGHT IN REACH. WILL CTM.
[2019-03-09 20:00] VITALS: BP 127/69
[2019-03-10] VITALS (7 sets, daily range): BP systolic 128–152; BP diastolic 70–104
--- NOTE | 2019-03-10 03:31 | NUR ---
I have reviewed this patient and I concur with the Shift Assessment completed by the Licensed Practical Nurse today this shift.
[2019-03-10 04:44] LABS: BASOPHILS 0.2 % (0-2); EOSINOPHILS 2.8 % (0-7); IMMATURE GRANULOCYTES 0.2 % (0-5); LYMPHOCYTES 20.6 % (15-50); MCH 29.2 pg (26.0-34.0); MCHC 32.1 g/dL (31.0-37.0); MCV 90.9 fL (80.0-100.0); MEAN PLATELET VOLUME 12.4 fL (7.4-10.4); MONOCYTES 7.9 % (2-11); NEUTROPHILS 68.3 % (40-80); PLATELET COUNT 60 10x3/uL (130-400); RBC 3.08 10x6/uL (4.00-5.40); RDW 15.3 % (11.5-14.5)
[2019-03-10 04:49] LABS: WBC 5.7 10x3/uL (4.8-10.8)
[2019-03-10 05:35] LABS: ALBUMIN 2.7 g/dL (3.4-5.0); ANION GAP 13.1 mmol/L (8-16); BILIRUBIN - TOTAL 0.43 mg/dL (0.2-1.3); CALCIUM 11.1 mg/dL (8.5-10.1); CARBON DIOXIDE 21.8 mmol/L (21.0-32.0); CREATININE - SERUM 2.9 mg/dL (0.6-1.3)
[2019-03-10 05:38] LABS: POTASSIUM - SERUM 3.9 mmol/L (3.5-5.1)
--- NOTE | 2019-03-10 07:30 | NUR ---
REPORT RECIEVED AND MORNING ROUNDING COMPLETE. PT LAYING IN BED EYES CLOSED BREATHING SHALLOW AND EVEN. NIGHT NURSE YUE STATES THAT PT'S ZOFRAN HAS BEEN STOPPED PER FAMILY REQUEST. PT'S CALL LIGTH WITHIN REACH AND BED INLOWEST POSITION.
--- NOTE | 2019-03-10 10:28 | NUR ---
CHANGED PT'S FEEDING BAG AND DID PEG TUBE CLEANING AND DRESSING CHANGE. RESIDUAL LESS THEN 10. FLUSHED AND RESTARTED FEEDING AT 75 WITH 100 ML FLUSH Q 4 HRS.
--- NOTE | 2019-03-10 13:41 | NUR ---
I have reviewed this patient and I concur with the Shift Assessment completed by the Licensed Practical Nurse today this shift.
--- NOTE | 2019-03-10 19:28 | NUR ---
PT IN BED. NO VERBAL RESPONSE. SPOKE WITH DAUGHTER WHO IS AT BEDSIDE. NO NEEDS VOICED AT THIS TIME.
--- NOTE | 2019-03-11 | NUR ---
PT CURRENTLY RESTING IN BED WITH EYES CLOSED. PT RESIDUAL 20CC'S. FLUSHED PEG-TUBE 100CCS. OSMOLITE LASHANDALY INFUSING @75MLS/HR.
--- NOTE | 2019-03-11 02:03 | NUR ---
I have reviewed this patient and I concur with the Shift Assessment completed by the Licensed Practical Nurse today this shift.
[2019-03-11 03:45] LABS: BASOPHILS 0 % (0-2); EOSINOPHILS 4.3 % (0-7); HEMATOCRIT 27.8 % (36.0-48.0); IMMATURE GRANULOCYTES 0.4 % (0-5); LYMPHOCYTES 28.2 % (15-50); MCH 29.2 pg (26.0-34.0); MCHC 32.4 g/dL (31.0-37.0); MCV 90.3 fL (80.0-100.0); MEAN PLATELET VOLUME 13.2 fL (7.4-10.4); MONOCYTES 8.5 % (2-11); NEUTROPHILS 58.6 % (40-80); PLATELET COUNT 72 10x3/uL (130-400); RBC 3.08 10x6/uL (4.00-5.40); RDW 14.8 % (11.5-14.5); WBC 5.2 10x3/uL (4.8-10.8)
[2019-03-11 03:55] VITALS: BP 142/86
[2019-03-11 03:58] LABS: ALBUMIN 2.6 g/dL (3.4-5.0); ANION GAP 11.1 mmol/L (8-16); BILIRUBIN - TOTAL 0.41 mg/dL (0.2-1.3); CALCIUM 11.7 mg/dL (8.5-10.1); CARBON DIOXIDE 23.8 mmol/L (21.0-32.0); CREATININE - SERUM 2.9 mg/dL (0.6-1.3); PLATELET ESTIMATE DECREASED; POTASSIUM - SERUM 3.9 mmol/L (3.5-5.1); PROTEIN - SERUM 5.1 g/dL (6.4-8.2)
--- NOTE | 2019-03-11 07:34 | NUR ---
PT ASLEEP, DID NOT WAKE I ENTERED. DID NOT FURTHER DSITURB AT THIS TIME. CL IN REACH, SRX2.
[2019-03-11 08:10] VITALS: BP 132/98
[2019-03-11 13:10] VITALS: BP 127/66
--- NOTE | 2019-03-11 13:15 | NUR ---
I have reviewed this patient and I concur with the Shift Assessment completed by the Licensed Practical Nurse today this shift.
--- NOTE | 2019-03-11 14:36 | MORECARE ---
CASE MANAGEMENT DISCHARGE SUMMARY PATIENT: SAMANTA HUERTA UNIT: [id number] ADM DATE: 02/25/19 AGE: 78 : 41 SEX: F ROOM/BED: D.2552 AUTHOR: JELLY,DOC PHYSICIAN: REFERRING PHYSICIAN: KARISSA PETERSON MD DATE OF SERVICE: 03/11/19 Discharge Plan Patient Name: SAMANTA HUERTA Facility: [facility]:[place] : 1940 Planned Disposition: Home with Home Health Anticipated Discharge Date: Discharge Date: Expected LOS: Initial Reviewer: [id number] Initial Review Date: 03/02/2019 Generated: 03/11/19 3:36 pm Comments DCP- Discharge Planning Updated by [id number]: Veronica Petersen on 03/11/19 1:[address] Patient Name: SAMANTA HUERTA Admission Status: ER Accout number: [id number] Admission Date: 02-25-2019 : 1940 Admission Diagnosis:NAUSEA WITH VOMITING, UNSPECIFIED Attending: KARISSA PETERSON Current LOS: 14 Anticipated DC Date: Planned Disposition: Home with Home Health Primary Insurance: MEDICARE A & B Discharge Planning Comments: spoke to SIGIFREDO ALVAREZ AT [facility] ABOUT FEEDS, THE FEEDS WILL BE CONTINIOUS AT DC. HH AND INFUSION ARE READY FOR DISCHARGE. Wardrobe Specialty Worker: Veronica Petersen DCP- Discharge Planning Updated by [id number]: Leonid Sandy on 03/09/19 10:[address] Patient Name: SAMANTA HUERTA Encounter No: [id number] : 1940 Primary Insurance: MEDICARE A & B Anticipated DC Date: Planned Disposition: Home with Home Health External Planned Provider: [facility] / [facility] DCP follow-up note: CM RECEIVED DISCHARGE PLANNING ORDER. CM REVIEWED CHART, PT NOW ON TUBE FEEDING. CM MET WITH PT IN ROOM TO DISCUSS DISCHARGE PLANNING AND NEEDS. PT REPORTS CONTINUED PLAN TO RETURN HOME AT DISCHARGE, DECLINES NURSING FACILITY PLACEMENT FOR JAIL CARE OR REHAB SERVICES. PT WANTS RESUPTION OF HOME HEALTH WITH [facility]. CM DISCUSSED NEED FOR TUBE FEEDINGS AT HOME, PROVIDED PT WITH INFUSION SERVICE PROVIDERS. PT HAS NO PREFERENCE ON PROVIDER. IMPORTANT MESSAGE FROM MEDICARE PROVIDED AND EXPLAINED. PT WAS ABLE TO SIGN FIRST NAME ONLY. PT REPORTS INABILITY TO SIGN CONSENT FOR INFUSION SERVICES. CM COMPLETED WITH VERBAL CONSENT OF PT. PT VERIFIED HOME ADDRESS ON FACE SHEET AND INFORMED CM THAT IT IS OK TO DISCUSS DISCHARGE PLANNING AND HER CARE WITH HER DAULGHTER, MARY OLGUIN. CM CALLED MARY OLGUIN, , LEFT MESSAGE. CM RECEIVED RETURN CALL FROM MARY WHO REPORTS PLAN FOR PT TO RETURN HOME WITH HOME HEALTH AND CONTINUED FAMILY ASSISTANCE. SHE WOULD LIKE TO USE [facility] IF AVAILABLE. MARY REPORTS PREFERENCE ON BOLUS FEEDS IF POSSIBLE. CM CALLED [facility], , SPOKE TO SIGIFREDO ALVAREZ AND PROVIDED REFERRAL INFORMATION, INFORMED THAT HOME HEALTH IS [facility]. CM FAXED REFERRAL TO [facility] AT [phone]. CM CALLED [facility], , NOTIFIED MON[place]AT OF DISCHARGE PLANNING ORDER WELL NEW TUBE FEED AND [facility] PROVIDER. NOTIFY ANA MARÍA OF [facility], , WITH ANY CHANGES TO TUBE FEEDINGS TO COMPLETE ARRANGEMENTS FOR DISCHARGE. FOR DISCHARGE HOME AND RESUPTION OF HOME HEALTH SERVICES, NOTIFY [facility] AT [phone], FAX DISCHARGE INFORMATION TO [facility] AT [phone]. EHSAN Mayes [facility]- Discharge Planning Updated by [id number]: Leonid Sandy on 03/02/19 12:[address] Patient Name: SAMANTA HUERTA Admission Status: ER Accout number: [id number] Admission Date: 02-25-2019 : 1940 Admission Diagnosis:NAUSEA WITH VOMITING, UNSPECIFIED Attending: KARISSA PETERSON Current LOS: 5 Anticipated DC Date: Planned Disposition: Home with Home Health Primary Insurance: MEDICARE A & B PLANNED EXTERNAL PROVIDER: [facility] Discharge Planning Comments: CM MET WITH PT IN ROOM TO DISCUSS DISCHARGE PLANNING AND NEEDS. PT REPORTS LIVING AT HOME DEPENDENTLY ON [place], SPOUSE AND DAUGHTER WHO LIVES NEXT DOOR WHO ASSISTS WITH MEDICATIONS, BATH AND TRANSFERS. PT HAS ARCADIO LIFT, WHEELCHAIR AND HOSPITAL BED AT HOME. PT HAS NO MEDICAL EQUIPMENT PROVIDER PREFERENCE. PT HAS HOME HEALTH FOR NURSING AND PHYSICAL THERAPY WITH [facility]. CM DISCUSSED AVAILABILITY OF HOME HEALTH, REHAB SERVICES AND MEDICAL EQUIPMENT. PT DENIES NEED OF REHAB OR ADDITIONAL MEDICAL EQUIPMENT. PT REPORTS NEEDING AMBULANCE FOR DISCHARGE HOME. HOME HEALTH PROVIDER LISTING GIVEN, PT SIGNED CONSENT FOR [facility]. CM CALLED [facility], , VERIFIED PT IS ACTIVE AND ON HOLD FOR HOME HEALTH SERVICES. CM FAXED UPDATE TO [facility] AT [phone]. FOR DISCHARGE HOME AND RESUPTION OF HOME HEALTH SERVICES, NOTIFY [facility] AT [phone], FAX DISCHARGE INFORMATION TO [facility] AT [phone]. Wardrobe Specialty Worker: Leonid Sandy DCPIA - Discharge Planning Initial Assessment Updated by [id number]: Leonid Sandy on 03/02/19 1:28 pm * Is the patient Alert and Oriented? Yes * How many steps to enter\exit or inside your home? RAMP * PCP DR. MENDOZA IN [place] * Pharmacy [facility] [place] * Preadmission Environment Home with Family * ADLs Partial Dependent * Partial ADLs (Assistance needed) Ambulation Bathing Dressing Medication Management Toileting Transfers * Equipment Hospital Bed Arcadio Lift Wheelchair * Other Equipment NO MEDICAL EQUIPMENT PROVIDER PREFERENCE * List name and contact numbers for known caregivers / representatives who currently or will assist patient after discharge: MARY OLGUIN, DTR, * Verbal permission to speak to the caregivers and representatives has been obtained from the patient. Yes * Community resources currently utilized Home Health * Please name any agencies selected above. [facility], NURSING AND PHYSICAL THERAPY * Additional services required to return to the preadmission environment? No * Can the patient safely return to the preadmission environment? Yes * Has this patient been hospitalized within the prior 30 days at any hospital? Yes Coverage Notice Reviewer: [id number] Don Sandy Notice Issued Date-Time: 03/02/2019 9:40 Notice Type: Patient Choice Letter Notice Delivered To: Patient Relationship to Patient: Master Deputy Sheriff Court Security Name: Delivery Method: HAND - Hand Delivered Radha Days: Prior Verbal Notification: Recipient Understood Notice: Yes Recipient Signature: Yes Med Rec Note Co-signed by Attending: Coverage Notice Comment: [facility] Reviewer: [id number] Don Sandy Notice Issued Date-Time: 03/09/2019 10:00 Notice Type: IM Discharge Notice Notice Delivered To: Patient Relationship to Patient: Master Deputy Sheriff Court Security Name: Delivery Method: HAND - Hand Delivered Radha Days: Prior Verbal Notification: Recipient Understood Notice: Yes Recipient Signature: Yes Med Rec Note Co-signed by Attending: Coverage Notice Comment: Reviewer: [id number] - Leonid Sandy Notice Issued Date-Time: 03/09/2019 10:00 Notice Type: Patient Choice Letter Notice Delivered To: Patient Relationship to Patient: Master Deputy Sheriff Court Security Name: Delivery Method: HAND - Hand Delivered Radha Days: Prior Verbal Notification: Recipient Understood Notice: Yes Recipient Signature: Med Rec Note Co-signed by Attending: Coverage Notice Comment: NO HOME INFUSION COMPANY PREFERENCE Last DP export: 03/09/19 10:13 a Patient Name: SAMANTA HUERTA Page [id number] at 1436 All edits/amendments must be made on the electronic document DICTATION DATE: 03/11/191435 DIRECTOR REVENUE: DEISY 03/11/191435 RPT#: [id number] DC DATE: STATUS: ADM IN [facility] [address] [place] [address] END OF REPORT
[2019-03-11 16:20] VITALS: BP 128/81
--- NOTE | 2019-03-11 20:02 | NUR ---
ROUNDS COMPLETED. VSS. AAOX1. NO VERBAL AT THIS TIME. FAMILY STATES SHE HAS BEEN SLEEPING ALL DAY. PT APPEARS LETHARGIC. PEG-TUBE APPEARS C/D/I. BRITT ALARM ON. PT CURRENTLY RESTING IN BED. DENIES ANY FURTHER NEEDS AT THIS TIME. WILL CTM.
[2019-03-11 20:38] VITALS: BP 132/70
[2019-03-12 00:29] VITALS: BP 141/69
[2019-03-12 05:03] LABS: BASOPHILS 0.2 % (0-2); EOSINOPHILS 3.4 % (0-7); HEMATOCRIT 28.7 % (36.0-48.0); HEMOGLOBIN 9.3 g/dL (12-16); IMMATURE GRANULOCYTES 0.6 % (0-5); LYMPHOCYTES 27.5 % (15-50); MCH 29.3 pg (26.0-34.0); MCHC 32.4 g/dL (31.0-37.0); MCV 90.5 fL (80.0-100.0); MEAN PLATELET VOLUME 12.9 fL (7.4-10.4); MONOCYTES 11.6 % (2-11); NEUTROPHILS 56.7 % (40-80); PLATELET COUNT 73 10x3/uL (130-400); RBC 3.17 10x6/uL (4.00-5.40); RDW 14.9 % (11.5-14.5); WBC 5.3 10x3/uL (4.8-10.8)
[2019-03-12 05:31] VITALS: BP 133/80
[2019-03-12 05:39] LABS: ALBUMIN 2.7 g/dL (3.4-5.0); ANION GAP 9.7 mmol/L (8-16); BILIRUBIN - TOTAL 0.32 mg/dL (0.2-1.3); CARBON DIOXIDE 24.4 mmol/L (21.0-32.0); CREATININE - SERUM 2.8 mg/dL (0.6-1.3); POTASSIUM - SERUM 4.1 mmol/L (3.5-5.1); PROTEIN - SERUM 5.2 g/dL (6.4-8.2)
[2019-03-12 08:47] VITALS: BP 129/65
--- NOTE | 2019-03-12 09:51 | NUR ---
AM MEDICATIONS ADMINISTERED VIA PEG TUBE. RESIDUAL OUTPUT OF 7ML NOTED. RESUMED TUBE FEEDING @75ML/HR. PT IS RESTING AT THE MOMENT. WILL CTM.
--- NOTE | 2019-03-12 12:01 | MORECARE ---
CASE MANAGEMENT DISCHARGE SUMMARY PATIENT: SAMANTA HUERTA UNIT: [id number] ADM DATE: 02/25/19 AGE: 78 : 41 SEX: F ROOM/BED: D.7632 AUTHOR: JELLY,DOC PHYSICIAN: REFERRING PHYSICIAN: KARISSA PETERSON MD DATE OF SERVICE: 03/12/19 Discharge Plan Patient Name: SAMANTA HUERTA Facility: [facility]:[place] : 1940 Planned Disposition: Home with Home Health Anticipated Discharge Date: 03/12/19 Discharge Date: Expected LOS: 15 Initial Reviewer: [id number] Initial Review Date: 03/02/2019 Generated: 03/12/19 1:01 pm Comments DCP- Discharge Planning Updated by [id number]: Veronica Petersen on 03/11/19 1:[address] Patient Name: SAMANTA HUERTA Admission Status: ER Accout number: [id number] Admission Date: 02-25-2019 : 1940 Admission Diagnosis:NAUSEA WITH VOMITING, UNSPECIFIED Attending: KARISSA PETERSON Current LOS: 14 Anticipated DC Date: Planned Disposition: Home with Home Health Primary Insurance: MEDICARE A & B Discharge Planning Comments: spoke to SIGIFREDO ALVAREZ AT [facility] ABOUT FEEDS, THE FEEDS WILL BE CONTINIOUS AT DC. HH AND INFUSION ARE READY FOR DISCHARGE. Gusset Edger: Veronica Petersen DCP- Discharge Planning Updated by [id number]: Leonid Sandy on 03/09/19 10:[address] Patient Name: SAMANTA HUERTA Encounter No: [id number] : 1940 Primary Insurance: MEDICARE A & B Anticipated DC Date: Planned Disposition: Home with Home Health External Planned Provider: [facility] / [facility] DCP follow-up note: CM RECEIVED DISCHARGE PLANNING ORDER. CM REVIEWED CHART, PT NOW ON TUBE FEEDING. CM MET WITH PT IN ROOM TO DISCUSS DISCHARGE PLANNING AND NEEDS. PT REPORTS CONTINUED PLAN TO RETURN HOME AT DISCHARGE, DECLINES NURSING FACILITY PLACEMENT FOR ASSISTED CARE OR REHAB SERVICES. PT WANTS RESUPTION OF HOME HEALTH WITH [facility]. CM DISCUSSED NEED FOR TUBE FEEDINGS AT HOME, PROVIDED PT WITH INFUSION SERVICE PROVIDERS. PT HAS NO PREFERENCE ON PROVIDER. IMPORTANT MESSAGE FROM MEDICARE PROVIDED AND EXPLAINED. PT WAS ABLE TO SIGN FIRST NAME ONLY. PT REPORTS INABILITY TO SIGN CONSENT FOR INFUSION SERVICES. CM COMPLETED WITH VERBAL CONSENT OF PT. PT VERIFIED HOME ADDRESS ON FACE SHEET AND INFORMED CM THAT IT IS OK TO DISCUSS DISCHARGE PLANNING AND HER CARE WITH HER DAULGHTER, MARY OLGUIN. CM CALLED MARY OLGUIN, , LEFT MESSAGE. CM RECEIVED RETURN CALL FROM MARY WHO REPORTS PLAN FOR PT TO RETURN HOME WITH HOME HEALTH AND CONTINUED FAMILY ASSISTANCE. SHE WOULD LIKE TO USE [facility] IF AVAILABLE. MARY REPORTS PREFERENCE ON BOLUS FEEDS IF POSSIBLE. CM CALLED [facility], , SPOKE TO SIGIFREDO ALVAREZ AND PROVIDED REFERRAL INFORMATION, INFORMED THAT HOME HEALTH IS [facility]. CM FAXED REFERRAL TO [facility] AT [phone]. CM CALLED [facility], , NOTIFIED [place] OF DISCHARGE PLANNING ORDER [facility] NEW TUBE FEED AND [facility] PROVIDER. NOTIFY SIGIFREDO ALVAREZ OF [facility], , WITH ANY CHANGES TO TUBE FEEDINGS TO COMPLETE ARRANGEMENTS FOR DISCHARGE. FOR DISCHARGE HOME AND RESUPTION OF HOME HEALTH SERVICES, NOTIFY [facility] AT [phone], FAX DISCHARGE INFORMATION TO [facility] AT [phone]. EHSAN Mayes [facility] DCP- Discharge Planning Updated by [id number]: Leonid Sandy on 03/02/19 12:[address] Patient Name: SAMANTA HUERTA Admission Status: ER Accout number: [id number] Admission Date: 02-25-2019 : 1940 Admission Diagnosis:NAUSEA WITH VOMITING, UNSPECIFIED Attending: KARISSA PETERSON Current LOS: 5 Anticipated DC Date: Planned Disposition: Home with Home Health Primary Insurance: MEDICARE A & B PLANNED EXTERNAL PROVIDER: [facility] Discharge Planning Comments: CM MET WITH PT IN ROOM TO DISCUSS DISCHARGE PLANNING AND NEEDS. PT REPORTS LIVING AT HOME DEPENDENTLY ON [address], SPOUSE AND DAUGHTER WHO LIVES NEXT DOOR WHO ASSISTS WITH MEDICATIONS, BATH AND TRANSFERS. PT HAS ARCADIO LIFT, WHEELCHAIR AND HOSPITAL BED AT HOME. PT HAS NO MEDICAL EQUIPMENT PROVIDER PREFERENCE. PT HAS HOME HEALTH FOR NURSING AND PHYSICAL THERAPY WITH [facility]. CM DISCUSSED AVAILABILITY OF HOME HEALTH, REHAB SERVICES AND MEDICAL EQUIPMENT. PT DENIES NEED OF REHAB OR ADDITIONAL MEDICAL EQUIPMENT. PT REPORTS NEEDING AMBULANCE FOR DISCHARGE HOME. HOME HEALTH PROVIDER LISTING GIVEN, PT SIGNED CONSENT FOR [facility]. CM CALLED [facility], , VERIFIED PT IS ACTIVE AND ON HOLD FOR HOME HEALTH SERVICES. CM FAXED UPDATE TO [facility] AT [phone]. FOR DISCHARGE HOME AND RESUPTION OF HOME HEALTH SERVICES, NOTIFY [facility] AT [phone], FAX DISCHARGE INFORMATION TO [facility] AT [phone]. Gusset Edger: Leonid Sandy DCPIA - Discharge Planning Initial Assessment Updated by [id number]: Leonid Sandy on 03/02/19 1:28 pm * Is the patient Alert and Oriented? Yes * How many steps to enter\exit or inside your home? RAMP * PCP DR. MENDOZA IN [place] * Pharmacy [facility] [place] * Preadmission Environment Home with Family * ADLs Partial Dependent * Partial ADLs (Assistance needed) Ambulation Bathing Dressing Medication Management Toileting Transfers * Equipment Hospital Bed Arcadio Lift Wheelchair * Other Equipment NO MEDICAL EQUIPMENT PROVIDER PREFERENCE * List name and contact numbers for known caregivers / representatives who currently or will assist patient after discharge: MARY OLGUIN, DTR, * Verbal permission to speak to the caregivers and representatives has been obtained from the patient. Yes * Community resources currently utilized Home Health * Please name any agencies selected above. [facility], NURSING AND PHYSICAL THERAPY * Additional services required to return to the preadmission environment? No * Can the patient safely return to the preadmission environment? Yes * Has this patient been hospitalized within the prior 30 days at any hospital? Yes Coverage Notice Reviewer: [id number] Don Sandy Notice Issued Date-Time: 03/02/2019 9:40 Notice Type: Patient Choice Letter Notice Delivered To: Patient Relationship to Patient: Business Machine Operator Name: Delivery Method: HAND - Hand Delivered Radha Days: Prior Verbal Notification: Recipient Understood Notice: Yes Recipient Signature: Yes Med Rec Note Co-signed by Attending: Coverage Notice Comment: [facility] Reviewer: [id number] Don Sandy Notice Issued Date-Time: 03/09/2019 10:00 Notice Type: IM Discharge Notice Notice Delivered To: Patient Relationship to Patient: Business Machine Operator Name: Delivery Method: HAND - Hand Delivered Radha Days: Prior Verbal Notification: Recipient Understood Notice: Yes Recipient Signature: Yes Med Rec Note Co-signed by Attending: Coverage Notice Comment: Reviewer: [id number] - Leonid Sandy Notice Issued Date-Time: 03/09/2019 10:00 Notice Type: Patient Choice Letter Notice Delivered To: Patient Relationship to Patient: Business Machine Operator Name: Delivery Method: HAND - Hand Delivered Radha Days: Prior Verbal Notification: Recipient Understood Notice: Yes Recipient Signature: Med Rec Note Co-signed by Attending: Coverage Notice Comment: NO HOME INFUSION COMPANY PREFERENCE Last DP export: 03/11/19 1:36 p Patient Name: SAMANTA HUERTA Page [id number] at 1201 All edits/amendments must be made on the electronic document DICTATION DATE: 03/12/19 120 STUDENT LOAN COUNSELOR: DEISY 03/12/19 1201 RPT#: [id number] DC DATE: STATUS: ADM IN [facility] [address] [place] [address] END OF REPORT
--- NOTE | 2019-03-12 12:28 | MORECARE ---
CASE MANAGEMENT DISCHARGE SUMMARY PATIENT: SAMANTA HUERTA UNIT: [id number] ADM DATE: 02/25/19 AGE: 78 : 41 SEX: F ROOM/BED: D.0391 AUTHOR: JELLY,DOC PHYSICIAN: REFERRING PHYSICIAN: KARISSA PETERSON MD DATE OF SERVICE: 03/12/19 Discharge Plan Patient Name: SAMANTA HUERTA Facility: [facility]:[place] : 1940 Planned Disposition: Home with Home Health Anticipated Discharge Date: 03/12/19 Discharge Date: Expected LOS: 15 Initial Reviewer: [id number] Initial Review Date: 03/02/2019 Generated: 03/12/19 1:28 pm Comments DCP- Discharge Planning Updated by [id number]: Thelma Noguera on 03/12/19 11:[address] Patient Name: SAMANTA HUERTA Encounter No: [id number] : 1940 Primary Insurance: MEDICARE A & B Anticipated DC Date: 03-12-2019 Planned Disposition: Home with Home Health External Planned Provider: [facility] DCP follow-up note: CM REVIEWED CHART, PAGED AND SPOKE TO ASHOK MICHELLE WHO INFORMED CM OF PLANNED DISCHARGE HOME TODAY. CM OBTAINED ORDERS FOR TUBE FEEDING. CM CALLED SIGIFREDO ALVAREZ WITH [facility], , WHO ADVISED PT'S TUBE FEEDINGS WILL NOT BE COVERED BY MEDICARE THERE IS NOT A DOCUMENTED REASON ACCEPTED BY MEDICARE TO COVER TUBE FEEDINGS WELL SPEECH NOTES INDICATING PT CAN EAT. SGIIFREDO ALVAREZ WILL COME TO HOSPITAL AT 1200 TO MEET WITH FAMILY AND DISCUSS PRIVATE PAY OPTIONS. CM CALLED AND NOTIFED PT'S DAUGHTER, MARY, . MARY REPORTS THEY WILL MAKE ARRANGEMENTS FOR TUBE FEEDING ON PRIVATE PAY BASIS AND FEEL THEY MAY BE ABLE TO FIND BETTER PRICES OTHER THAN [facility]. MARY KNOWS THE DOCTOR WANTS PT ON THE PUMP, SHE HOWEVER IS CONSIDERING DOING BOLUS FEEDS. CM SPOKE TO PT AND DAUGHTER IN ROOM, DAUGHTER JORDI VARGAS. JORDI WILL BE TAKING CARE OF PT AT HOME AND REPORTS THE DOCTOR SAID THAT PT NEEDS CONTINUOUS TUBE FEEDINGS AND THEY WILL BE USING THE PUMP. CM EXPLAINED WHAT MARY HAD SAID AND EXPLAINED THAT THERE IS A LACK OF ADEQUATE MEDICAL DOCUMENTATION OF WHY PT CANNOT EAT / SWALLOW AND THAT MEDICARE WILL NOT COVER TUBE FEEDING COSTS. PT'S DAUGHTER UNHAPPY, STATES THAT DR. FLAHERTY SAID PT CANNOT EAT AND WHEN PT GOES HOME, IF SHE STARTS THROWING UP AGAIN, THEY WILL BE ENROLLING WITH HOSPICE PT IS NOT COMING BACK TO A HOSPITAL. CM ASKED WHAT ELSE COULD BE ARRANGED AT HOME TO ASSISTS WITH PT'S CARE. PT'S DAUGHTER DENIES NEEDS OTHER THAN [facility] RESUMPTION AND AMBULANCE TRANSPORTATION HOME. CM EXPLAINED THAT SIGIFREDO PETERSON WILL BE EHRE AROUND LUNCH TODAY TO EXPLAINE WHAT OPTIONS FOR PRIVATE PAY ARRANGEMENTS ARE AVAILABLE WITH [facility]. IMPORTANT MESSAGE FROM MEDICARE PROVIDED AND EXPLAINED. CM CALLED AND SPOKE TO PARAS OF [facility], , NOTIFIED OF PLANNED DISCHARGE. PARAS OFFERED TO HAVE NURSE GO TO HOUSE THIS AFTERNOON. CM SPOKE TO JORDI WHO ASKED THAT HOME HEALTH NURSE COME TOMORROW MORNING, 03-13-19 DUE TO THEM NOT KNOWING WHAT TIME PT WILL ACTUALLY GET HOME TODAY. CM NOTIFIED PARAS, PT PLACED ON RESUMPTION SCHEDULE FOR TOMORROW. CM FAXED UPDATE TO [facility] AT [phone]. CM FAXED UPDATE TO [facility] AT [phone]. SIGIFREDO SPRINGER TO SPEAK TO FAMILY TO OFFER PRIVATE PAY ARRANGEMENTS FOR TUBE FEEDING EQUIPMENT AND SUPPLIES. FAMILY IS CONSIDERING PURCHASING NEEDED MATERIALS PRIVATELY AND WITH SOMEONE OTHER THAN [facility]. FOR DISCHARGE, FAX DISCHARGE INFORMATION TO [facility] AT [phone]. THELMA NOGUERA, CASE MANAGEMENT DCP- Discharge Planning Updated by [id number]: Veronica Petersen on 03/11/19 1:[address] Patient Name: SAMANTA HUERTA Admission Status: ER Accout number: [id number] Admission Date: 02-25-2019 : 1940 Admission Diagnosis:NAUSEA WITH VOMITING, UNSPECIFIED Attending: KARISSA PETERSON Current LOS: 14 Anticipated DC Date: Planned Disposition: Home with Home Health Primary Insurance: MEDICARE A & B Discharge Planning Comments: spoke to SIGIFREDO [facility] ABOUT FEEDS, THE FEEDS WILL BE CONTINIOUS AT DC. HH AND INFUSION ARE READY FOR DISCHARGE. Bobbin Sorter: Veronica Petersen DCP- Discharge Planning Updated by [id number]: Thelma Noguera on 03/09/19 10:[address] Patient Name: SAMANTA HUERTA Encounter No: [id number] : 1940 Primary Insurance: MEDICARE A & B Anticipated DC Date: Planned Disposition: Home with Home Health External Planned Provider: [facility] / [facility] DCP follow-up note: CM RECEIVED DISCHARGE PLANNING ORDER. CM REVIEWED CHART, PT NOW ON TUBE FEEDING. CM MET WITH PT IN ROOM TO DISCUSS DISCHARGE PLANNING AND NEEDS. PT REPORTS CONTINUED PLAN TO RETURN HOME AT DISCHARGE, DECLINES NURSING FACILITY PLACEMENT FOR RPG DEVELOPER CARE OR REHAB SERVICES. PT WANTS RESUPTION OF HOME HEALTH WITH [facility]. CM DISCUSSED NEED FOR TUBE FEEDINGS AT HOME, PROVIDED PT WITH INFUSION SERVICE PROVIDERS. PT HAS NO PREFERENCE ON PROVIDER. IMPORTANT MESSAGE FROM MEDICARE PROVIDED AND EXPLAINED. PT WAS ABLE TO SIGN FIRST NAME ONLY. PT REPORTS INABILITY TO SIGN CONSENT FOR INFUSION SERVICES. CM COMPLETED WITH VERBAL CONSENT OF PT. PT VERIFIED HOME ADDRESS ON FACE SHEET AND INFORMED CM THAT IT IS OK TO DISCUSS DISCHARGE PLANNING AND HER CARE WITH HER DAULGHTER, MARY OLGUIN. CM CALLED MARY OLGUIN, , LEFT MESSAGE. CM RECEIVED RETURN CALL FROM MARY WHO REPORTS PLAN FOR PT TO RETURN HOME WITH HOME HEALTH AND CONTINUED FAMILY ASSISTANCE. SHE WOULD LIKE TO USE [facility] IF AVAILABLE. MARY REPORTS PREFERENCE ON BOLUS FEEDS IF POSSIBLE. CM CALLED [facility], , SPOKE TO SIGIFREDO ALVAREZ AND PROVIDED REFERRAL INFORMATION, INFORMED THAT HOME HEALTH IS [facility]. CM FAXED REFERRAL TO [facility] AT [phone]. CM CALLED [facility], , NOTIFIED MONTS[place]AT OF DISCHARGE PLANNING ORDER [facility]LL NEW TUBE FEED AND [facility] PROVIDER. NOTIFY SIGIFREDO ALVAREZ OF [facility], , WITH ANY CHANGES TO TUBE FEEDINGS TO COMPLETE ARRANGEMENTS FOR DISCHARGE. FOR DISCHARGE HOME AND RESUPTION OF HOME HEALTH SERVICES, NOTIFY [facility] AT [phone], FAX DISCHARGE INFORMATION TO [facility] AT [phone]. EHSAN Mayes DCP- Discharge Planning Updated by [id number]: Thelma Noguera on 03/02/19 12:[address] Patient Name: SAMANTA HUERTA Admission Status: ER Accout number: [id number] Admission Date: 02-25-2019 : 1940 Admission Diagnosis:NAUSEA WITH VOMITING, UNSPECIFIED Attending: KARISSA PETERSON Current LOS: 5 Anticipated DC Date: Planned Disposition: Home with Home Health Primary Insurance: MEDICARE A & B PLANNED EXTERNAL PROVIDER: [facility] Discharge Planning Comments: CM MET WITH PT IN ROOM TO DISCUSS DISCHARGE PLANNING AND NEEDS. PT REPORTS LIVING AT HOME DEPENDENTLY ON [address], SPOUSE AND DAUGHTER WHO LIVES NEXT DOOR WHO ASSISTS WITH MEDICATIONS, BATH AND TRANSFERS. PT HAS ARCADIO LIFT, WHEELCHAIR AND HOSPITAL BED AT HOME. PT HAS NO MEDICAL EQUIPMENT PROVIDER PREFERENCE. PT HAS HOME HEALTH FOR NURSING AND PHYSICAL THERAPY WITH [facility]. CM DISCUSSED AVAILABILITY OF HOME HEALTH, REHAB SERVICES AND MEDICAL EQUIPMENT. PT DENIES NEED OF REHAB OR ADDITIONAL MEDICAL EQUIPMENT. PT REPORTS NEEDING AMBULANCE FOR DISCHARGE HOME. HOME HEALTH PROVIDER LISTING GIVEN, PT SIGNED CONSENT FOR [facility]. CM CALLED [facility], , VERIFIED PT IS ACTIVE AND ON HOLD FOR HOME HEALTH SERVICES. CM FAXED UPDATE TO [facility] AT [phone]. FOR DISCHARGE HOME AND RESUPTION OF HOME HEALTH SERVICES, NOTIFY [facility] AT [phone], FAX DISCHARGE INFORMATION TO [facility] AT [phone]. Bobbin Sorter: Thelma Noguera DCA - Discharge Planning Initial Assessment Updated by [id number]: Thelma Noguera on 03/02/19 1:28 pm * Is the patient Alert and Oriented? Yes * How many steps to enter\exit or inside your home? RAMP * PCP DR. MENDOZA IN [place] * Pharmacy [facility] IN [place] * Preadmission Environment Home with Family * ADLs Partial Dependent * Partial ADLs (Assistance needed) Ambulation Bathing Dressing Medication Management Toileting Transfers * Equipment Hospital Bed Arcadio Lift Wheelchair * Other Equipment NO MEDICAL EQUIPMENT PROVIDER PREFERENCE * List name and contact numbers for known caregivers / representatives who currently or will assist patient after discharge: MARY OLGUIN, DTNyla, * Verbal permission to speak to the caregivers and representatives has been obtained from the patient. Yes * Community resources currently utilized Home Health * Please name any agencies selected above. [facility]ICAL THERAP[facility] * Additional services required to return to the preadmission environment? No * Can the patient safely return to the preadmission environment? Yes * Has this patient been hospitalized within the prior 30 days at any hospital? Yes Coverage Notice Reviewer: [id number] Noguera Notice Issued Date-Time: 03/09/2019 10:00 Notice Type: Patient Choice Letter Notice Delivered To: Patient Relationship to Patient: Assistant Art Director Name: Delivery Method: HAND - Hand Delivered Radha Days: Prior Verbal Notification: Recipient Understood Notice: Yes Recipient Signature: Med Rec Note Co-signed by Attending: Coverage Notice Comment: NO HOME INFUSION COMPANY PREFERENCE Reviewer: [id number] Noguera Notice Issued Date-Time: 03/02/2019 9:40 Notice Type: Patient Choice Letter Notice Delivered To: Patient Relationship to Patient: Assistant Art Director Name: Delivery Method: HAND - Hand Delivered Radha Days: Prior Verbal Notification: Recipient Understood Notice: Yes Recipient Signature: Yes Med Rec Note Co-signed by Attending: Coverage Notice Comment: [facility] Reviewer: [id number] Noguera Notice Issued Date-Time: 03/09/2019 10:00 Notice Type: IM Discharge Notice Notice Delivered To: Patient Relationship to Patient: Assistant Art Director Name: Delivery Method: HAND - Hand Delivered Radha Days: Prior Verbal Notification: Recipient Understood Notice: Yes Recipient Signature: Yes Med Rec Note Co-signed by Attending: Coverage Notice Comment: Last DP export: 03/12/19 11:01 a Patient Name: SAMATNA HUERTA Page [id number] at 1228 All edits/amendments must be made on the electronic document DICTATION DATE: 03/12/198 [employer] ASSEMBLY OFFICER: DEISY 03/12/19 1228 RPT#: [id number] DC DATE: STATUS: ADM IN [facility] [address] [place] [address] END OF REPORT
[2019-03-12] MEDS ORDERED: CARAFATE1 G PO (12:52)
[2019-03-12] MEDS ORDERED: MIRALAX17 GM PO (12:57)
[2019-03-12 13:02] VITALS: BP 117/81
--- NOTE | 2019-03-12 15:16 | MORECARE ---
CASE MANAGEMENT DISCHARGE SUMMARY PATIENT: SAMANTA HEURTA UNIT: [id number] ADM DATE: 02/25/19 AGE: 78 : 41 SEX: F ROOM/BED: D.2945 AUTHOR: JELLY,DOC PHYSICIAN: REFERRING PHYSICIAN: KARISSA PETERSON MD DATE OF SERVICE: 03/12/19 Discharge Plan Patient Name: SAMANTA HUERTA Facility: [facility]:[place] : 1940 Planned Disposition: Home with Home Health Anticipated Discharge Date: 03/12/19 Discharge Date: Expected LOS: 15 Initial Reviewer: [id number] Initial Review Date: 03/02/2019 Generated: 03/12/19 4:15 pm Comments DCP- Discharge Planning Updated by [id number]: Thelma Noguera on 03/12/19 11:[address] Patient Name: SAMANTA HUERTA Encounter No: [id number] : 1940 Primary Insurance: MEDICARE A & B Anticipated DC Date: 03-12-2019 Planned Disposition: Home with Home Health External Planned Provider: [facility] DCP follow-up note: CM REVIEWED CHART, PAGED AND SPOKE TO ASHOK MICHELLE WHO INFORMED CM OF PLANNED DISCHARGE HOME TODAY. CM OBTAINED ORDERS FOR TUBE FEEDING. CM CALLED SIGIFREDO ALVAREZ WITH [facility], , WHO ADVISED PT'S TUBE FEEDINGS WILL NOT BE COVERED BY MEDICARE THERE IS NOT A DOCUMENTED REASON ACCEPTED BY MEDICARE TO COVER TUBE FEEDINGS WELL SPEECH NOTES INDICATING PT CAN EAT. SIGIFREDO ALVAREZ WILL COME TO HOSPITAL AT 1200 TO MEET WITH FAMILY AND DISCUSS PRIVATE PAY OPTIONS. CM CALLED AND NOTIFED PT'S DAUGHTER, MARY, . MARY REPORTS THEY WILL MAKE ARRANGEMENTS FOR TUBE FEEDING ON PRIVATE PAY BASIS AND FEEL THEY MAY BE ABLE TO FIND BETTER PRICES OTHER THAN [facility]. MARY KNOWS THE DOCTOR WANTS PT ON THE PUMP, SHE HOWEVER IS CONSIDERING DOING BOLUS FEEDS. CM SPOKE TO PT AND DAUGHTER IN ROOM, DAUGHTER JORDI VARGAS. JORDI WILL BE TAKING CARE OF PT AT HOME AND REPORTS THE DOCTOR SAID THAT PT NEEDS CONTINUOUS TUBE FEEDINGS AND THEY WILL BE USING THE PUMP. CM EXPLAINED WHAT MARY HAD SAID AND EXPLAINED THAT THERE IS A LACK OF ADEQUATE MEDICAL DOCUMENTATION OF WHY PT CANNOT EAT / SWALLOW AND THAT MEDICARE WILL NOT COVER TUBE FEEDING COSTS. PT'S DAUGHTER UNHAPPY, STATES THAT DR. FLAHERTY SAID PT CANNOT EAT AND WHEN PT GOES HOME, IF SHE STARTS THROWING UP AGAIN, THEY WILL BE ENROLLING WITH HOSPICE PT IS NOT COMING BACK TO A HOSPITAL. CM ASKED WHAT ELSE COULD BE ARRANGED AT HOME TO ASSISTS WITH PT'S CARE. PT'S DAUGHTER DENIES NEEDS OTHER THAN [facility] RESUMPTION AND AMBULANCE TRANSPORTATION HOME. CM EXPLAINED THAT SIGIFREDO PETERSON WILL BE EHRE AROUND LUNCH TODAY TO EXPLAINE WHAT OPTIONS FOR PRIVATE PAY ARRANGEMENTS ARE AVAILABLE WITH [facility]. IMPORTANT MESSAGE FROM MEDICARE PROVIDED AND EXPLAINED. CM CALLED AND SPOKE TO PARAS OF [facility], , NOTIFIED OF PLANNED DISCHARGE. PARAS OFFERED TO HAVE NURSE GO TO HOUSE THIS AFTERNOON. CM SPOKE TO JORDI WHO ASKED THAT HOME HEALTH NURSE COME TOMORROW MORNING, 03-13-19 DUE TO THEM NOT KNOWING WHAT TIME PT WILL ACTUALLY GET HOME TODAY. CM NOTIFIED PARAS, PT PLACED ON RESUMPTION SCHEDULE FOR TOMORROW. CM FAXED UPDATE TO [facility] AT [phone]. CM FAXED UPDATE TO [facility] AT [phone]. SIGIFREDO SPRINGER TO SPEAK TO FAMILY TO OFFER PRIVATE PAY ARRANGEMENTS FOR TUBE FEEDING EQUIPMENT AND SUPPLIES. FAMILY IS CONSIDERING PURCHASING NEEDED MATERIALS PRIVATELY AND WITH SOMEONE OTHER THAN [facility]. FOR DISCHARGE, FAX DISCHARGE INFORMATION TO [facility] AT [phone]. THELMA NOGUERA, CASE MANAGEMENT DCP- Discharge Planning Updated by [id number]: Veronica Petersen on 03/11/19 1:[address] Patient Name: SAMANTA HUERTA Admission Status: ER Accout number: [id number] Admission Date: 02-25-2019 : 1940 Admission Diagnosis:NAUSEA WITH VOMITING, UNSPECIFIED Attending: KARISSA PETERSON Current LOS: 14 Anticipated DC Date: Planned Disposition: Home with Home Health Primary Insurance: MEDICARE A & B Discharge Planning Comments: spoke to [facility] ABOUT FEEDS, THE FEEDS WILL BE CONTINIOUS AT DC. HH AND INFUSION ARE READY FOR DISCHARGE. Park Warden: Veronica Petersen DCP- Discharge Planning Updated by [id number]: Thelma Noguera on 03/09/19 10:[address] Patient Name: SAMANTA HUERTA Encounter No: [id number] : 1940 Primary Insurance: MEDICARE A & B Anticipated DC Date: Planned Disposition: Home with Home Health External Planned Provider: [facility] / [facility] DCP follow-up note: CM RECEIVED DISCHARGE PLANNING ORDER. CM REVIEWED CHART, PT NOW ON TUBE FEEDING. CM MET WITH PT IN ROOM TO DISCUSS DISCHARGE PLANNING AND NEEDS. PT REPORTS CONTINUED PLAN TO RETURN HOME AT DISCHARGE, DECLINES NURSING FACILITY PLACEMENT FOR ERP ENGINEER CARE OR REHAB SERVICES. PT WANTS RESUPTION OF HOME HEALTH WITH [facility]. CM DISCUSSED NEED FOR TUBE FEEDINGS AT HOME, PROVIDED PT WITH INFUSION SERVICE PROVIDERS. PT HAS NO PREFERENCE ON PROVIDER. IMPORTANT MESSAGE FROM MEDICARE PROVIDED AND EXPLAINED. PT WAS ABLE TO SIGN FIRST NAME ONLY. PT REPORTS INABILITY TO SIGN CONSENT FOR INFUSION SERVICES. CM COMPLETED WITH VERBAL CONSENT OF PT. PT VERIFIED HOME ADDRESS ON FACE SHEET AND INFORMED CM THAT IT IS OK TO DISCUSS DISCHARGE PLANNING AND HER CARE WITH HER DAULGHTER, MARY OLGUIN. CM CALLED MARY OLGUIN, , LEFT MESSAGE. CM RECEIVED RETURN CALL FROM MARY WHO REPORTS PLAN FOR PT TO RETURN HOME WITH HOME HEALTH AND CONTINUED FAMILY ASSISTANCE. SHE WOULD LIKE TO USE [facility] IF AVAILABLE. MARY REPORTS PREFERENCE ON BOLUS FEEDS IF POSSIBLE. CM CALLED [facility], , SPOKE TO SIGIFREDO ALVAREZ AND PROVIDED REFERRAL INFORMATION, INFORMED THAT HOME HEALTH IS [facility]. CM FAXED REFERRAL TO [facility] AT [phone]. CM CALLED [facility], , NOTIFIED MON[place]AT OF DISCHARGE PLANNING ORDER [facility]LL NEW TUBE FEED AND [facility] PROVIDER. NOTIFY SIGIFREDO ALVAREZ OF [facility], , WITH ANY CHANGES TO TUBE FEEDINGS TO COMPLETE ARRANGEMENTS FOR DISCHARGE. FOR DISCHARGE HOME AND RESUPTION OF HOME HEALTH SERVICES, NOTIFY [facility] AT [phone], FAX DISCHARGE INFORMATION TO [facility] AT [phone]. EHSAN Mayes DCP- Discharge Planning Updated by [id number]: Thelma Noguera on 03/02/19 12:[address] Patient Name: SAMANTA HUERTA Admission Status: ER Accout number: [id number] Admission Date: 02-25-2019 : 1940 Admission Diagnosis:NAUSEA WITH VOMITING, UNSPECIFIED Attending: KARISSA PETERSON Current LOS: 5 Anticipated DC Date: Planned Disposition: Home with Home Health Primary Insurance: MEDICARE A & B PLANNED EXTERNAL PROVIDER: [facility] Discharge Planning Comments: CM MET WITH PT IN ROOM TO DISCUSS DISCHARGE PLANNING AND NEEDS. PT REPORTS LIVING AT HOME DEPENDENTLY ON [address], SPOUSE AND DAUGHTER WHO LIVES NEXT DOOR WHO ASSISTS WITH MEDICATIONS, BATH AND TRANSFERS. PT HAS ARCADIO LIFT, WHEELCHAIR AND HOSPITAL BED AT HOME. PT HAS NO MEDICAL EQUIPMENT PROVIDER PREFERENCE. PT HAS HOME HEALTH FOR NURSING AND PHYSICAL THERAPY WITH [facility]. CM DISCUSSED AVAILABILITY OF HOME HEALTH, REHAB SERVICES AND MEDICAL EQUIPMENT. PT DENIES NEED OF REHAB OR ADDITIONAL MEDICAL EQUIPMENT. PT REPORTS NEEDING AMBULANCE FOR DISCHARGE HOME. HOME HEALTH PROVIDER LISTING GIVEN, PT SIGNED CONSENT FOR [facility]. CM CALLED [facility], , VERIFIED PT IS ACTIVE AND ON HOLD FOR HOME HEALTH SERVICES. CM FAXED UPDATE TO [facility] AT [phone]. FOR DISCHARGE HOME AND RESUPTION OF HOME HEALTH SERVICES, NOTIFY [facility] AT [phone], FAX DISCHARGE INFORMATION TO [facility] AT [phone]. Park Warden: Thelma Noguera DCA - Discharge Planning Initial Assessment Updated by [id number]: Thelma Noguera on 03/02/19 1:28 pm * Is the patient Alert and Oriented? Yes * How many steps to enter\exit or inside your home? RAMP * PCP DR. MENDOZA IN [place] * Pharmacy [facility] IN [place] * Preadmission Environment Home with Family * ADLs Partial Dependent * Partial ADLs (Assistance needed) Ambulation Bathing Dressing Medication Management Toileting Transfers * Equipment Hospital Bed Arcadio Lift Wheelchair * Other Equipment NO MEDICAL EQUIPMENT PROVIDER PREFERENCE * List name and contact numbers for known caregivers / representatives who currently or will assist patient after discharge: MARY OLGUIN, DTNyla, * Verbal permission to speak to the caregivers and representatives has been obtained from the patient. Yes * Community resources currently utilized Home Health * Please name any agencies selected above. [facility] * Additional services required to return to the preadmission environment? No * Can the patient safely return to the preadmission environment? Yes * Has this patient been hospitalized within the prior 30 days at any hospital? Yes External Providers External Provider: [facility] Next Contact Date: 03/09/2019 Service Request Date: Service Type: Resolution: Reviewer: Comments: External Provider: [facility] Next Contact Date: 03/02/2019 Service Request Date: Service Type: Resolution: Reviewer: Comments: Coverage Notice Reviewer: MARIELENA Noguera Notice Issued Date-Time: 03/12/2019 11:30 Notice Type: IM Discharge Notice Notice Delivered To: Family Member Relationship to Patient: Daughter Student Support Advisor Name: JORDI VARGAS Delivery Method: HAND - Hand Delivered Radha Days: Prior Verbal Notification: Recipient Understood Notice: Yes Recipient Signature: Yes Med Rec Note Co-signed by Attending: Coverage Notice Comment: Reviewer: MARIELENA Noguera Notice Issued Date-Time: 03/09/2019 10:00 Notice Type: Patient Choice Letter Notice Delivered To: Patient Relationship to Patient: Student Support Advisor Name: Delivery Method: HAND - Hand Delivered Radha Days: Prior Verbal Notification: Recipient Understood Notice: Yes Recipient Signature: Med Rec Note Co-signed by Attending: Coverage Notice Comment: NO HOME INFUSION COMPANY PREFERENCE Reviewer: MARIELENA Noguera Notice Issued Date-Time: 03/02/2019 9:40 Notice Type: Patient Choice Letter Notice Delivered To: Patient Relationship to Patient: Student Support Advisor Name: Delivery Method: HAND - Hand Delivered Radha Days: Prior Verbal Notification: Recipient Understood Notice: Yes Recipient Signature: Yes Med Rec Note Co-signed by Attending: Coverage Notice Comment: [facility] Reviewer: MARIELENA Noguera Notice Issued Date-Time: 03/09/2019 10:00 Notice Type: IM Discharge Notice Notice Delivered To: Patient Relationship to Patient: Student Support Advisor Name: Delivery Method: HAND - Hand Delivered Radha Days: Prior Verbal Notification: Recipient Understood Notice: Yes Recipient Signature: Yes Med Rec Note Co-signed by Attending: Coverage Notice Comment: Last DP export: 03/12/19 11:28 a Patient Name: SAMANTA HUERTA Page [id number] at 1516 All edits/amendments must be made on the electronic document DICTATION DATE: 03/12/19 1515 FUR CUTTING MACHINE OPERATOR: DEISY 03/12/19 1515 RPT#: [id number] DC DATE: STATUS: ADM IN [facility] [address] [place] [id number] END OF REPORT
--- NOTE | 2019-03-12 15:25 | MORECARE ---
CASE MANAGEMENT DISCHARGE SUMMARY PATIENT: SAMANTA HUERTA UNIT: [id number] ADM DATE: 02/25/19 AGE: 78 : 42 SEX: F ROOM/BED: D.6074 AUTHOR: JELLY,DOC PHYSICIAN: REFERRING PHYSICIAN: KARISSA PETERSON MD DATE OF SERVICE: 03/12/19 Discharge Plan Patient Name: SAMANTA HUERTA Facility: [facility]:[place] : 1940 Planned Disposition: Home with Home Health Anticipated Discharge Date: 03/12/19 Discharge Date: Expected LOS: 15 Initial Reviewer: [id number] Initial Review Date: 03/02/2019 Generated: 03/12/19 4:25 pm Comments DCP- Discharge Planning Updated by [id number]: Thelma Noguera on 03/12/19 2:[address] Patient Name: SAMANTA HUERTA Encounter No: [id number] : 1940 Primary Insurance: MEDICARE A & B Anticipated DC Date: 03-12-2019 Planned Disposition: Home with Home Health External Planned Provider: [facility] DCP follow-up note: CM REVIEWED CHART, PAGED AND SPOKE TO ASHOK MICHELLE WHO INFORMED CM OF PLANNED DISCHARGE HOME TODAY. CM OBTAINED ORDERS FOR TUBE FEEDING. CM CALLED SIGIFREDO ALVAREZ WITH [facility], , WHO ADVISED PT'S TUBE FEEDINGS WILL NOT BE COVERED BY MEDICARE THERE IS NOT A DOCUMENTED REASON ACCEPTED BY MEDICARE TO COVER TUBE FEEDINGS WELL SPEECH NOTES INDICATING PT CAN EAT. SIGIFREDO ALVAREZ WILL COME TO HOSPITAL AT 1200 TO MEET WITH FAMILY AND DISCUSS PRIVATE PAY OPTIONS. CM CALLED AND NOTIFED PT'S DAUGHTER, MARY, . MARY REPORTS THEY WILL MAKE ARRANGEMENTS FOR TUBE FEEDING ON PRIVATE PAY BASIS AND FEEL THEY MAY BE ABLE TO FIND BETTER PRICES OTHER THAN [facility]. MARY KNOWS THE DOCTOR WANTS PT ON THE PUMP, SHE HOWEVER IS CONSIDERING DOING BOLUS FEEDS. CM SPOKE TO PT AND DAUGHTER IN ROOM, DAUGHTER JORDI VARGAS. JORDI WILL BE TAKING CARE OF PT AT HOME AND REPORTS THE DOCTOR SAID THAT PT NEEDS CONTINUOUS TUBE FEEDINGS AND THEY WILL BE USING THE PUMP. CM EXPLAINED WHAT MARY HAD SAID AND EXPLAINED THAT THERE IS A LACK OF ADEQUATE MEDICAL DOCUMENTATION OF WHY PT CANNOT EAT / SWALLOW AND THAT MEDICARE WILL NOT COVER TUBE FEEDING COSTS. PT'S DAUGHTER UNHAPPY, STATES THAT DR. FLAHERTY SAID PT CANNOT EAT AND WHEN PT GOES HOME, IF SHE STARTS THROWING UP AGAIN, THEY WILL BE ENROLLING WITH HOSPICE PT IS NOT COMING BACK TO A HOSPITAL. CM ASKED WHAT ELSE COULD BE ARRANGED AT HOME TO ASSISTS WITH PT'S CARE. PT'S DAUGHTER DENIES NEEDS OTHER THAN [facility] RESUMPTION AND AMBULANCE TRANSPORTATION HOME. ROWENA EXPLAINED THAT SIGIFREDO PETERSON WILL BE EHRE AROUND LUNCH TODAY TO EXPLAINE WHAT OPTIONS FOR PRIVATE PAY ARRANGEMENTS ARE AVAILABLE WITH [facility]. IMPORTANT MESSAGE FROM MEDICARE PROVIDED AND EXPLAINED. CM CALLED AND SPOKE TO PARAS OF [facility], , NOTIFIED OF PLANNED DISCHARGE. PARAS OFFERED TO HAVE NURSE GO TO HOUSE THIS AFTERNOON. ROWENA SPOKE TO JORDI WHO ASKED THAT HOME HEALTH NURSE COME TOMORROW MORNING, 03-13-19 DUE TO THEM NOT KNOWING WHAT TIME PT WILL ACTUALLY GET HOME TODAY. CM NOTIFIED PARAS, PT PLACED ON RESUMPTION SCHEDULE FOR TOMORROW. CM FAXED UPDATE TO [facility] AT [phone]. CM FAXED UPDATE TO [facility] AT [phone]. SIGIFREDO PETERSON TO SPEAK TO FAMILY TO OFFER PRIVATE PAY ARRANGEMENTS FOR TUBE FEEDING EQUIPMENT AND SUPPLIES. FAMILY IS CONSIDERING PURCHASING NEEDED MATERIALS PRIVATELY AND WITH SOMEONE OTHER THAN [facility]. FOR DISCHARGE, FAX DISCHARGE INFORMATION TO [facility] AT [phone]. THELMA NOGUERA, CASE MANAGEMENT Appended by Thelma Noguera on 03/12/2019 15:16 CDT: SIGIFREDO PETERSON SPOKE TO FAMILY TO OFFER PRIVATE PAY ARRANGEMENTS FOR TUBE FEEDING EQUIPMENT AND SUPPLIES. FAMILY HAS ACCEPTED AND MADE ARRAGEMENTS WITH [facility] FOR HOME BOLUS FEEDINGS; ROWENA AND SIGIFREDO ALVAREZ SPOKE TO DR. VELÁSQUEZ AND ASHOK MICHELLE, WHO APPROVED BOLUS FEEDINGS AT HOME. [facility] ARRANGING HOME DELIVERY OF FEEDING MATERIAL. PT WILL BE SENT HOME WITH SUPPLIES FOR THREE DAYS TO ALLOW TIME FOR SHIPPING AND HOME DELIVERY. ROWENA RECEIVED DISHARGE, FAXED DISCHARGE INFORMATION TO [facility] AT [phone]. NO FURTHER NEEDS IDENTIFIED. PT TO TRANSPORT HOME VIA AMBULANCE. THELMA NOGUERA, CASE MANAGEMENT DCP- Discharge Planning Updated by [id number]: Veronica Petersen on 03/11/19 1:[address] Patient Name: SAMANTA HUERTA Admission Status: ER Accout number: [id number] Admission Date: 02-25-2019 : 1940 Admission Diagnosis:NAUSEA WITH VOMITING, UNSPECIFIED Attending: KARISSA PETERSON Current LOS: 14 Anticipated DC Date: Planned Disposition: Home with Home Health Primary Insurance: MEDICARE A & B Discharge Planning Comments: spoke to SIGIFREDO ALVAREZ AT [facility] ABOUT FEEDS, THE FEEDS WILL BE CONTINIOUS AT [place]. HH AND INFUSION ARE READY FOR DISCHARGE. Solar Designer: Veronica Petersen DCP- Discharge Planning Updated by [id number]: Thelma Noguera on 03/09/19 10:[address] Patient Name: SAMANTA HUERTA Encounter No: [id number] : 1940 Primary Insurance: MEDICARE A & B Anticipated DC Date: Planned Disposition: Home with Home Health External Planned Provider: [facility] / [facility] DCP follow-up note: CM RECEIVED DISCHARGE PLANNING ORDER. CM REVIEWED CHART, PT NOW ON TUBE FEEDING. CM MET WITH PT IN ROOM TO DISCUSS DISCHARGE PLANNING AND NEEDS. PT REPORTS CONTINUED PLAN TO RETURN HOME AT DISCHARGE, DECLINES NURSING FACILITY PLACEMENT FOR POLICE CHIEF CARE OR REHAB SERVICES. PT WANTS RESUPTION OF HOME HEALTH WITH [facility]. CM DISCUSSED NEED FOR TUBE FEEDINGS AT HOME, PROVIDED PT WITH INFUSION SERVICE PROVIDERS. PT HAS NO PREFERENCE ON PROVIDER. IMPORTANT MESSAGE FROM MEDICARE PROVIDED AND EXPLAINED. PT WAS ABLE TO SIGN FIRST NAME ONLY. PT REPORTS INABILITY TO SIGN CONSENT FOR INFUSION SERVICES. CM COMPLETED WITH VERBAL CONSENT OF PT. PT VERIFIED HOME ADDRESS ON FACE SHEET AND INFORMED CM THAT IT IS OK TO DISCUSS DISCHARGE PLANNING AND HER CARE WITH HER DAULGHTER, MARY SHARIF. CM CALLED MARY OLGUIN, , LEFT MESSAGE. CM RECEIVED RETURN CALL FROM MARY WHO REPORTS PLAN FOR PT TO RETURN HOME WITH HOME HEALTH AND CONTINUED FAMILY ASSISTANCE. SHE WOULD LIKE TO USE [facility] IF AVAILABLE. MARY REPORTS PREFERENCE ON BOLUS FEEDS IF POSSIBLE. CM CALLED [facility], , SPOKE TO SIGIFREDO ALVAREZ AND PROVIDED REFERRAL INFORMATION, INFORMED THAT HOME HEALTH IS [facility]. CM FAXED REFERRAL TO [facility] AT [phone]. CM CALLED [facility], , NOTIFIED [place] OF DISCHARGE PLANNING ORDER WELL NEW TUBE FEED AND [facility]. NOTIFY SIGIFREDO ALVAREZ OF [facility], , WITH ANY CHANGES TO TUBE FEEDINGS TO COMPLETE ARRANGEMENTS FOR DISCHARGE. FOR DISCHARGE HOME AND RESUPTION OF HOME HEALTH SERVICES, NOTIFY [facility] AT [phone], FAX DISCHARGE INFORMATION TO [facility] AT [phone]. Thelma Noguera, EHSAN MANGEMENT DCP- Discharge Planning Updated by [id number]: Thelma Noguera on 03/02/19 12:[address] Patient Name: SAMANTA HUERTA Admission Status: ER Accout number: [id number] Admission Date: 02-25-2019 : 1940 Admission Diagnosis:NAUSEA WITH VOMITING, UNSPECIFIED Attending: KARISSA PETERSON Current LOS: 5 Anticipated DC Date: Planned Disposition: Home with Home Health Primary Insurance: MEDICARE A & B PLANNED EXTERNAL PROVIDER: [facility] Discharge Planning Comments: CM MET WITH PT IN ROOM TO DISCUSS DISCHARGE PLANNING AND NEEDS. PT REPORTS LIVING AT HOME DEPENDENTLY ON [place], SPOUSE AND DAUGHTER WHO LIVES NEXT DOOR WHO ASSISTS WITH MEDICATIONS, BATH AND TRANSFERS. PT HAS ARCADIO LIFT, WHEELCHAIR AND HOSPITAL BED AT HOME. PT HAS NO MEDICAL EQUIPMENT PROVIDER PREFERENCE. PT HAS HOME HEALTH FOR NURSING AND PHYSICAL THERAPY WITH [facility]. CM DISCUSSED AVAILABILITY OF HOME HEALTH, REHAB SERVICES AND MEDICAL EQUIPMENT. PT DENIES NEED OF REHAB OR ADDITIONAL MEDICAL EQUIPMENT. PT REPORTS NEEDING AMBULANCE FOR DISCHARGE HOME. HOME HEALTH PROVIDER LISTING GIVEN, PT SIGNED CONSENT FOR [facility]. CM CALLED [facility], , VERIFIED PT IS ACTIVE AND ON HOLD FOR HOME HEALTH SERVICES. CM FAXED UPDATE TO [facility] AT [phone]. FOR DISCHARGE HOME AND RESUPTION OF HOME HEALTH SERVICES, NOTIFY [facility] AT [phone], FAX DISCHARGE INFORMATION TO [facility] AT [phone]. Solar Designer: Thelma Noguera DCPIA - Discharge Planning Initial Assessment Updated by [id number]: Thelma Noguera on 03/02/19 1:28 pm * Is the patient Alert and Oriented? Yes * How many steps to enter\exit or inside your home? RAMP * PCP DR. MENDOZA IN [place] * Pharmacy [facility] * Preadmission Environment Home with Family * ADLs Partial Dependent * Partial ADLs (Assistance needed) Ambulation Bathing Dressing Medication Management Toileting Transfers * Equipment Hospital Bed Arcadio Lift Wheelchair * Other Equipment NO MEDICAL EQUIPMENT PROVIDER PREFERENCE * List name and contact numbers for known caregivers / representatives who currently or will assist patient after discharge: MARY SHARIF, DTR, * Verbal permission to speak to the caregivers and representatives has been obtained from the patient. Yes * Community resources currently utilized Home Health * Please name any agencies selected above. [facility] * Additional services required to return to the preadmission environment? No * Can the patient safely return to the preadmission environment? Yes * Has this patient been hospitalized within the prior 30 days at any hospital? Yes Coverage Notice Reviewer: MARIELENA Noguera Notice Issued Date-Time: 03/12/2019 11:30 Notice Type: IM Discharge Notice Notice Delivered To: Family Member Relationship to Patient: Daughter Web Marketing Assistant Name: JORDI VARGAS Delivery Method: HAND - Hand Delivered Radha Days: Prior Verbal Notification: Recipient Understood Notice: Yes Recipient Signature: Yes Med Rec Note Co-signed by Attending: Coverage Notice Comment: Reviewer: MARIELENA Noguera Notice Issued Date-Time: 03/09/2019 10:00 Notice Type: Patient Choice Letter Notice Delivered To: Patient Relationship to Patient: Web Marketing Assistant Name: Delivery Method: HAND - Hand Delivered Radha Days: Prior Verbal Notification: Recipient Understood Notice: Yes Recipient Signature: Med Rec Note Co-signed by Attending: Coverage Notice Comment: NO HOME INFUSION COMPANY PREFERENCE Reviewer: [id number] Noguera Notice Issued Date-Time: 03/02/2019 9:40 Notice Type: Patient Choice Letter Notice Delivered To: Patient Relationship to Patient: Web Marketing Assistant Name: Delivery Method: HAND - Hand Delivered Radha Days: Prior Verbal Notification: Recipient Understood Notice: Yes Recipient Signature: Yes Med Rec Note Co-signed by Attending: Coverage Notice Comment: [facility] Reviewer: [id number] Noguera Notice Issued Date-Time: 03/09/2019 10:00 Notice Type: IM Discharge Notice Notice Delivered To: Patient Relationship to Patient: Web Marketing Assistant Name: Delivery Method: HAND - Hand Delivered Radha Days: Prior Verbal Notification: Recipient Understood Notice: Yes Recipient Signature: Yes Med Rec Note Co-signed by Attending: Coverage Notice Comment: Last DP export: 03/12/19 2:16 p Patient Name: SAMANTA HUERTA Page [id number] at 1525 All edits/amendments must be made on the electronic document DICTATION DATE: 03/12/191524 HEATER FURNACE: DEISY 03/12/191524 RPT#: [id number] DC DATE: STATUS: ADM IN [facility] [address] [place] [address] END OF REPORT
--- NOTE | 2019-03-12 16:51 | NUR ---
PT DISCHARGED HOME VIA STRETCHER AND EMS TO HOME. CVL REMOVED VIA [address]. PT FAMILY SIGNED PROPER DISCHARGE INSTRUCTION AND ALL VALUABLES WERE REMOVED FROM THE ROOM.
== END 2019-03-12 17:05 | disposition home health service (06) | DRG 380 ==
LOC: D.ER 17:51 → D.EDHOLD 19:53 → D.M2 19:53
PROVIDERS: Family Medicine; Family Medicine Adult Medicine; Internal Medicine Gastroenterology; Internal Medicine Nephrology; ADMIT Internal Medicine Nephrology; ATTEND Internal Medicine Nephrology
PROC: 0DJ08ZZ Inspection of Upper Intestinal Tract, Via Natural or Artificial Opening Endoscopic (ICD-10-PCS; principal; 2019-02-27 14:00)
DX: K22.10 Ulcer of esophagus without bleeding (principal); N17.0 Acute kidney failure with tubular necrosis; N39.0 Urinary tract infection, site not specified; E44.0 Moderate protein-calorie malnutrition; G10 Huntington's disease; R62.7 Adult failure to thrive; Z68.27 Body mass index [BMI] 27.0-27.9, adult; D64.9 Anemia, unspecified; E86.0 Dehydration; K59.00 Constipation, unspecified; K25.9 Gastric ulcer, unspecified as acute or chronic, without hemorrhage or perforation; K29.80 Duodenitis without bleeding; I12.9 Hypertensive chronic kidney disease with stage 1 through stage 4 chronic kidney disease, or unspecified chronic kidney disease; N18.3 Chronic kidney disease, stage 3 (moderate); K31.84 Gastroparesis; E21.0 Primary hyperparathyroidism

== ENCOUNTER → 2021-01-02 11:43 | Outpatient (CLI) | payer MEDICARE, BC ==
[2019-03-03 15:34] VITALS: BMI 27.6
--- NOTE | ~2021-01-02 | HEMODYNAMI ---
PATIENT:SAMANTA HUERTA MEDICAL RECORD: [id number] : [birth year] LOCATION:[facility] ADMISSION DATE: 01/02/21 Generatedon:112:17 Patient name: SAMANTA HUERTA Patient #: [id number] SSN: DO B: 1940 Date of study: 01/02/2021 Page: Of Hemodynamic Procedure Report Patient Data Patient Demographics Procedure consent was obtained First Name: SAMANTA Gender: Female Last Name: DEANNA : 1940 [facility] Initial: MARILY Age: 80 year(s) Patient #: [id number] Race: Unknown Additional ID: [id number] Contact details Address: [address] [place] [address] State: [place] City: [place] Zip code: [address] Past Medical History Allergies Allergen Reaction Date Comments Reported Betadine 01/02/2021 Penicillins 01/02/2021 Admission Admission Data Admission Date: 01/02/2021 Admission Time: 11:43 Procedure Procedure Types Cath Procedure Peripheral Cath Diagnostic Procedure Gastric G Tube Replacement Procedure Description Procedure Date Procedure Date: 01/02/2021 Procedure Start Time: 12:07 Procedure Staff Name Function Jaylan Shultz MD Performing Physician Veronica Fuentes RT Financial Planner Marcelina Covington RN Nurse Amadou Dumont RT Scrub Procedure Data Cath Procedure Fluoroscopy Diagnostic fluoroscopy Total fluoroscopy Time: 0.6 time: 0.6 min min Diagnostic fluoroscopy Total fluoroscopy dose: 7 dose: 7 mGy mGy Contrast Material Contrast Material Type Amount (ml) Isovue 300 18 Hemodynamics Rest Pre Cath Intra NCS Post Cath Procedure Log Time Note 11:50:28 Time tracking: Regular hours (M-F 7:00 - 5:00) 11:59:19 Use device set IR Diagnostic 11:59:21 Sterile Angiographic Pack opened to sterile field. 11:59:23 Bag Decanter () opened to sterile field. 11:59:53 Patient received from Other to IR Alert and oriented. Tansferred to table in Supine position. 11:59:57 Signed procedure consent form obtained from verbally. 12:00:27 Patient allergic to Betadine 12:00:33 Patient allergic to Penicillins 12:02:57 VALERIE .035 15cm wire ([id number]) opened to sterile field. 12:06:47 Physician arrived 12:06:47 --------ALL STOP TIME OUT------ 12:06:48 Final Timeout: patient, procedure, and site verified with staff and physician. All members of the team are in agreement. 12:07:49 Procedure started. 12:07:50 Full Disclosure recording started 12:10:47 GASTROSTOMY 20Fr Tri-Funnel Tube ([id number]) opened to sterile field. 12:12:54 Procedure ended.(Physican Out) 12:16:35 Fluoroscopy time 00.60 minutes. 12:16:45 Fluoroscopy dose: 7 mGy 12:16:45 Flurop Dose total: 7 12:16:49 Contrast amount:Isovue 300 18ml. 12:17:03 Procedure and supply charges have been captured, reviewed, submitted and are correct. Device Usage Item Name Manufacture Quantity Catalog Hospital Part Current Minimal Lot# / Number Charge Number Stock Stock Serial# Code Sterile Cardinal 1 [id number] 5 Angiographic Health Pack Bag Decanter Microtek 1 [id number] 5 () [employer] VALERIE .035 [employer] 1 [id number] 5 [id number] 15cm wire ([id number]) GASTROSTOMY Bard 1 [id number] [id number] 159159 5 20Fr Tri-Funnel Tube ([id number]) Signature Audit [place] Stage Time Signature Unsigned Intra-Procedure 01/02/2021 Veronica Fuentes 12:17:43 PM RT(R) [facility] [address] [place] [address]
[~2021-01-02 11:43] MED LIST changes: +CARAFATE1 G PO; +LEVOFLOXACIN500 MG PO; +REGLAN10 MG PO; +SENSIPAR90 MG PO
== END | disposition home or self-care (01) ==
LOC: D.RAD 11:43
DX: Z43.1 Encounter for attention to gastrostomy (principal)